=== PATIENT | female | born 1970 | race Caucasian/White ===

== ENCOUNTER → 2016-05-20 | Outpatient (CLI) | payer OTHER ==
[~2016-05-20] MED LIST: OMNIPAQUE 350 MG/ML, 100ML BOTTLE ONE
== END | disposition home or self-care (01) ==
LOC: RAD 11:23
PROVIDERS: ATTEND Physician Assistant
DX: R19.07 Generalized intra-abdominal and pelvic swelling, mass and lump (principal); J98.11 Atelectasis; J84.10 Pulmonary fibrosis, unspecified; K76.9 Liver disease, unspecified; R59.1 Generalized enlarged lymph nodes
CPT/HCPCS: 71260; 74177; Q9967

== ENCOUNTER 2016-05-30 05:24 | Inpatient (IN) | payer OTHER ==
[2016-05-28 15:51] LABS: HEMOGLOBIN 13.1 g/dL (11.7-16.4)
[2016-05-28 15:59] LABS: ASPARTATE AMINO TRANSFERASE 22 U/L (15-37); BLOOD UREA NITROGEN 10 mg/dL (7-18)
[~2016-05-30] VITALS: Ht 172.7 cm; Wt 103.2 kg
[~2016-05-30 05:24] MED LIST changes: +ALPR0.254 PO; +HYDR12.58 PO; +LISI-170 PO; -OMNIPAQUE 350 MG/ML, 100ML BOTTLE ONE; +POTA20TA89 PO; +SERT25TA3 PO; +THYR60TA PO
[2016-05-30 05:56] VITALS: BP 122/85
[2016-05-30] MEDS ORDERED: ALBUMIN HUMAN 5% 1,000 ML ONE (07:02)
[2016-05-30] MEDS ORDERED: FENTANYL PF 250 MCG/5ML ONE (07:08)
[2016-05-30] MEDS ORDERED: MIDAZOLAM 1 MG/ML, 5ML ONE (07:09)
[2016-05-30 07:24] VITALS: BP 112/76
[2016-05-30] MEDS ORDERED: PROPOFOL 10 MG/ML, 20ML ONE (07:50)
[2016-05-30] MEDS ORDERED: CEFOTETAN 2 GM ONE (07:50)
[2016-05-30] MEDS ORDERED: DEXAMETHASONE 4 MG/ML, 1ML ONE (07:50)
[2016-05-30] MEDS ORDERED: ONDANSETRON 2MG/ML, 2ML ONE (07:50)
[2016-05-30] MEDS ORDERED: ROCURONIUM 10 MG/ML ONE (07:50)
[2016-05-30] MEDS ORDERED: POTASSIUM CHLORIDE 40 MEQ in SODIUM CHLORIDE 0.9% 500 ML IV ONE (09:00)
[2016-05-30] MEDS ORDERED: MAGNESIUM SULFATE PMX 2GM/50ML 50 ML IV ONE (09:00)
[2016-05-30] MEDS ORDERED: morphine SULFATE/PF 0.5 MG/ML, 10ML ONE (10:20)
[2016-05-30] MEDS ORDERED: PROMETHAZINE 25 MG/ML, 1ML IV PRN (11:00)
[2016-05-30] MEDS ORDERED: MIDAZOLAM 1 MG/ML, 2ML IV PRN (11:00)
[2016-05-30] MEDS ORDERED: ACETAMINOPHEN 325 MG TABLET PO PRN (11:00)
[2016-05-30] MEDS ORDERED: HYDROmorphone 1 MG/ML, 1ML IV PRN (11:00)
[2016-05-30] MEDS ORDERED: MEPERIDINE/PF 25MG/0.5ML IVPush PRN (11:00)
[2016-05-30] MEDS ORDERED: ONDANSETRON 2MG/ML, 2ML IVPush PRN (11:00)
[2016-05-30] MEDS: KETOROLAC 30 MG/1 ML IV SCH ×2 (12:00→20:13)
[2016-05-30] MEDS: FENTANYL PF 100 MCG/2ML IV PRN ×2 (12:20→12:54)
[2016-05-30] MEDS ORDERED: FENTANYL PF 100 MCG/2ML ONE (12:42)
[2016-05-30] MEDS ORDERED: NALOXONE 0.4 MG/ML, 1ML IV PRN ×2 (13:00)
[2016-05-30] MEDS: HYDROmorphone 5 MG, BUPIVACAINE/PF 0.5%, 30ML 62.5 ML in SODIUM CHLORIDE 0.9% 182.5 ML EPIDCONT SCH (13:00)
[2016-05-30] MEDS ORDERED: MEPERIDINE/PF 25MG/0.5ML IV PRN (13:00)
[2016-05-30] MEDS ORDERED: METOCLOPRAMIDE 5 MG/ML, 2ML IV PRN (13:00)
[2016-05-30 13:03] VITALS: BP_SYST 113; BP_SYST 130; BP_DIAS 60; BP_DIAS 85
[2016-05-30] MEDS: LACTATED RINGERS 1,000 ML IV SCH ×2 (17:27→20:15)
[2016-05-30] MEDS ORDERED: LACTATED RINGERS 1,000 ML IV SCH (17:30)
[2016-05-30] MEDS ORDERED: PHENOL THROAT SPRAY BOTTLE MM PRN (17:30)
[2016-05-30 19:50] VITALS: BP 152/87
[2016-05-31 01:52] VITALS: BP 123/66
[2016-05-31] MEDS: LACTATED RINGERS 1,000 ML IV SCH ×4 (01:52→19:52)
[2016-05-31] MEDS: KETOROLAC 30 MG/1 ML IV SCH ×3 (04:23→21:22)
[2016-05-31 07:05] LABS: BLOOD UREA NITROGEN 4 mg/dL (7-18)
[2016-05-31 07:14] LABS: HEMOGLOBIN 10.4 g/dL (11.7-16.4)
[2016-05-31 07:50] VITALS: BP 106/57
[2016-05-31] MEDS: FAMOTIDINE 20 MG/2 ML IV SCH ×2 (09:21→21:22)
[2016-05-31 12:55] VITALS: BP 108/68
[2016-05-31] MEDS: HYDROmorphone 5 MG, BUPIVACAINE/PF 0.5%, 30ML 62.5 ML in SODIUM CHLORIDE 0.9% 182.5 ML EPIDCONT SCH (13:46)
[2016-05-31 20:45] VITALS: BP 135/80
[2016-05-31] MEDS: LORazepam 2 MG/ML, 1ML IVPush PRN (22:03)
[2016-06-01] MEDS: LORazepam 2 MG/ML, 1ML IVPush PRN (01:31)
[2016-06-01 02:58] VITALS: BP 115/70
[2016-06-01] MEDS: LACTATED RINGERS 1,000 ML IV SCH ×4 (03:27→22:36)
[2016-06-01] MEDS: KETOROLAC 30 MG/1 ML IV SCH ×3 (04:24→20:55)
[2016-06-01 05:54] LABS: HEMOGLOBIN 9.8 g/dL (11.7-16.4)
[2016-06-01 07:10] VITALS: BP 122/80
[2016-06-01] MEDS: FAMOTIDINE 20 MG/2 ML IV SCH ×2 (08:55→20:55)
[2016-06-01 13:05] VITALS: BP 139/88
[2016-06-01] MEDS: HYDROmorphone 5 MG, BUPIVACAINE/PF 0.5%, 30ML 62.5 ML in SODIUM CHLORIDE 0.9% 182.5 ML EPIDCONT SCH (17:56)
[2016-06-01 20:00] VITALS: BP 152/85
[2016-06-02 03:58] VITALS: BP 161/97
[2016-06-02] MEDS: KETOROLAC 30 MG/1 ML IV SCH ×3 (04:08→21:53)
[2016-06-02] MEDS: LACTATED RINGERS 1,000 ML IV SCH ×2 (04:08→05:27)
[2016-06-02] MEDS: LORazepam 2 MG/ML, 1ML IVPush PRN ×2 (04:13→19:37)
[2016-06-02 08:07] VITALS: BP 143/86
[2016-06-02] MEDS: FAMOTIDINE 20 MG/2 ML IV SCH ×2 (09:32→21:53)
[2016-06-02] MEDS: HYDROCHLOROTHIAZIDE 12.5 MG CAPSULE PO SCH (09:32)
[2016-06-02] MEDS: LISINOPRIL 20 MG TABLET PO SCH (09:32)
[2016-06-02 15:34] VITALS: BP 159/94
[2016-06-02] MEDS ORDERED: LACTATED RINGERS 1,000 ML IV SCH (17:30)
[2016-06-02] MEDS: HYDROmorphone 5 MG, BUPIVACAINE/PF 0.5%, 30ML 62.5 ML in SODIUM CHLORIDE 0.9% 182.5 ML EPIDCONT SCH (18:09)
[2016-06-02 20:00] VITALS: BP 162/96
[2016-06-03] MEDS: LORazepam 2 MG/ML, 1ML IVPush PRN ×2 (00:23→21:44)
[2016-06-03 02:00] VITALS: BP 169/101
[2016-06-03 05:13] LABS: BLOOD UREA NITROGEN 2 mg/dL (7-18)
[2016-06-03 05:15] LABS: HEMOGLOBIN 9.8 g/dL (11.7-16.4)
[2016-06-03] MEDS: KETOROLAC 30 MG/1 ML IV SCH ×3 (06:36→21:44)
[2016-06-03 08:23] VITALS: BP 164/97
[2016-06-03] MEDS ORDERED: POTASSIUM CHLORIDE PMX 100 ML IV ONE ×3 (08:30→10:30)
[2016-06-03] MEDS ORDERED: POTASSIUM CHLORIDE 30 MEQ in SODIUM CHLORIDE 0.9% 500 ML IV SCH (10:00)
[2016-06-03] MEDS: D5%-0.45NACL+KCL 20MEQ 1,000 ML IV SCH ×2 (10:41→20:50)
[2016-06-03] MEDS: HYDROCHLOROTHIAZIDE 12.5 MG CAPSULE PO SCH (10:47)
[2016-06-03] MEDS: LISINOPRIL 20 MG TABLET PO SCH (10:47)
[2016-06-03] MEDS: FAMOTIDINE 20 MG/2 ML IV SCH ×2 (10:48→20:50)
[2016-06-03 12:00] VITALS: BP 169/109
[2016-06-03 20:00] VITALS: BP 149/87
[2016-06-04] MEDS: D5%-0.45NACL+KCL 20MEQ 1,000 ML IV SCH ×3 (04:21→22:16)
[2016-06-04 04:45] VITALS: BP 170/93
[2016-06-04 05:11] VITALS: BP 165/98
[2016-06-04] MEDS: KETOROLAC 30 MG/1 ML IV SCH (05:21)
[2016-06-04 07:45] VITALS: BP 158/97
[2016-06-04] MEDS: FAMOTIDINE 20 MG/2 ML IV SCH ×2 (09:27→20:41)
[2016-06-04 09:35] LABS: BLOOD UREA NITROGEN 2 mg/dL (7-18)
[2016-06-04] MEDS: LISINOPRIL 20 MG TABLET PO SCH (09:59)
[2016-06-04] MEDS: HYDROCHLOROTHIAZIDE 12.5 MG CAPSULE PO SCH (11:24)
[2016-06-04] MEDS ORDERED: POTASSIUM CHLORIDE IV SCH (12:00)
[2016-06-04] MEDS ORDERED: SODIUM CHLORIDE 0.9% IV SCH (12:00)
[2016-06-04 13:32] VITALS: BP 164/104
[2016-06-04 18:33] VITALS: BP 163/93
[2016-06-04] MEDS: LORazepam 2 MG/ML, 1ML IVPush PRN (20:41)
[2016-06-05 03:30] VITALS: BP 154/100
[2016-06-05 06:20] LABS: BLOOD UREA NITROGEN 3 mg/dL (7-18)
[2016-06-05] MEDS: D5%-0.45NACL+KCL 20MEQ 1,000 ML IV SCH ×3 (06:24→20:48)
[2016-06-05] MEDS: HYDROCHLOROTHIAZIDE 12.5 MG CAPSULE PO SCH ×2 (09:00→10:15)
[2016-06-05] MEDS: LISINOPRIL 20 MG TABLET PO SCH ×2 (09:00→10:14)
[2016-06-05 09:08] VITALS: BP 145/89
[2016-06-05] MEDS ORDERED: POTASSIUM CHLORIDE 40 MEQ in SODIUM CHLORIDE 0.9% 500 ML IV ONE (10:00)
[2016-06-05] MEDS: FAMOTIDINE 20 MG/2 ML IV SCH ×2 (10:14→20:48)
[2016-06-05 14:00] VITALS: BP 123/84
[2016-06-05 17:46] VITALS: BP 133/84
[2016-06-05 19:10] VITALS: BP 127/87
[2016-06-05] MEDS: HYDROmorphone 5 MG, BUPIVACAINE/PF 0.5%, 30ML 62.5 ML in SODIUM CHLORIDE 0.9% 182.5 ML EPIDCONT SCH (20:40)
[2016-06-05] MEDS: LORazepam 2 MG/ML, 1ML IVPush PRN (20:48)
[2016-06-06 02:20] VITALS: BP 138/84
[2016-06-06 04:38] LABS: HEMOGLOBIN 9.8 g/dL (11.7-16.4)
[2016-06-06 04:42] LABS: BLOOD UREA NITROGEN 4 mg/dL (7-18)
[2016-06-06] MEDS: D5%-0.45NACL+KCL 20MEQ 1,000 ML IV SCH ×2 (06:10→19:05)
[2016-06-06 07:53] VITALS: BP 120/77
[2016-06-06] MEDS: LISINOPRIL 20 MG TABLET PO SCH (09:33)
[2016-06-06] MEDS: FAMOTIDINE 20 MG/2 ML IV SCH ×2 (09:33→20:38)
[2016-06-06] MEDS: HYDROCHLOROTHIAZIDE 12.5 MG CAPSULE PO SCH (09:33)
[2016-06-06 13:40] VITALS: BP 115/77
[2016-06-06] MEDS: OXYcodone/APAP 7.5/325MG TABLET PO PRN ×3 (14:44→22:50)
[2016-06-06 19:58] VITALS: BP 111/77
[2016-06-06] MEDS: LORazepam 2 MG/ML, 1ML IVPush PRN (22:50)
[2016-06-07 01:17] VITALS: BP 115/73
[2016-06-07] MEDS: D5%-0.45NACL+KCL 20MEQ 1,000 ML IV SCH (05:27)
[2016-06-07] MEDS: OXYcodone/APAP 7.5/325MG TABLET PO PRN ×4 (05:28→16:39)
[2016-06-07 07:57] VITALS: BP 123/76
[2016-06-07] MEDS: HYDROCHLOROTHIAZIDE 12.5 MG CAPSULE PO SCH (11:07)
[2016-06-07] MEDS: FAMOTIDINE 20 MG/2 ML IV SCH (11:07)
[2016-06-07] MEDS: LISINOPRIL 20 MG TABLET PO SCH (11:07)
[2016-06-07 13:57] VITALS: BP 114/79
[2016-06-07] MEDS ORDERED: OXYC1TAB8 PO (16:33)
[2016-06-07] MEDS ORDERED: METO10TA82 PO (16:34)
== END 2016-06-07 17:30 | disposition home or self-care (01) | DRG 331 ==
LOC: 4NOR 05:24 → 3NW 10:03
PROVIDERS: ADMIT Specialist; ATTEND Specialist
PROC: 0DTF0ZZ Resection of Right Large Intestine, Open Approach (ICD-10-PCS; 2016-05-30)
PROC: 0UT70ZZ Resection of Bilateral Fallopian Tubes, Open Approach (ICD-10-PCS; 2016-05-30)
PROC: 0UT90ZZ Resection of Uterus, Open Approach (ICD-10-PCS; 2016-05-30)
PROC: 0UTC0ZZ Resection of Cervix, Open Approach (ICD-10-PCS; 2016-05-30)
PROC: 0DTS0ZZ (ICD-10-PCS; 2016-05-30)
PROC: 0TN70ZZ Release Left Ureter, Open Approach (ICD-10-PCS; 2016-05-30)
PROC: 0TN60ZZ Release Right Ureter, Open Approach (ICD-10-PCS; 2016-05-30)
PROC: 0DBW0ZZ Excision of Peritoneum, Open Approach (ICD-10-PCS; 2016-05-30)
PROC: 0UT20ZZ Resection of Bilateral Ovaries, Open Approach (ICD-10-PCS; principal; 2016-05-30 07:30)
DX: C18.1 Malignant neoplasm of appendix (principal); D72.829 Elevated white blood cell count, unspecified; D64.9 Anemia, unspecified; E87.6 Hypokalemia; I10 Essential (primary) hypertension
CPT/HCPCS: 36415; 71020; 74000; 80048; 80053; 82040; 83735; 84703; 85025; 85610; 85730; 86850; 86900; 86923; 88112; 88304; 88305; 88307; 88331; 88341; 88342; 93005; C1729; J1100; J1170; J1885; J2250; J2274; J2405; J2704; J3010; J3480; J3490; P9045; C1765; G0461; J2060; J2765; J7030; J7040; J7050; J7120; S0028; S0074

== ENCOUNTER → 2016-07-23 | Outpatient (CLI) | payer OTHER ==
[~2016-07-23] MED LIST changes: +METO10TA82 PO; +OXYC1TAB8 PO
== END | disposition home or self-care (01) ==
LOC: CFH 07:57
PROVIDERS: ATTEND Specialist
DX: Z02.9 Encounter for administrative examinations, unspecified (principal)

== ENCOUNTER → 2016-07-25 | Outpatient (CLI) | payer OTHER ==
[~2016-07-25] MED LIST changes: +ALPRazolam 1MG TABLET ONE; +GADOBUTROL 10 MMOL/10 ML VIAL ONE; +GADOBUTROL 7.5 MMOL/7.5 ML PFS ONE
== END | disposition home or self-care (01) ==
LOC: RAD 10:04
PROVIDERS: ATTEND Specialist
DX: C77.2 Secondary and unspecified malignant neoplasm of intra-abdominal lymph nodes (principal); C79.82 Secondary malignant neoplasm of genital organs; C79.60 Secondary malignant neoplasm of unspecified ovary; C18.1 Malignant neoplasm of appendix; K76.0 Fatty (change of) liver, not elsewhere classified; R59.9 Enlarged lymph nodes, unspecified; Z90.49 Acquired absence of other specified parts of digestive tract; Z90.710 Acquired absence of both cervix and uterus; Z90.722 Acquired absence of ovaries, bilateral
CPT/HCPCS: 72197; A9585; 74183

== ENCOUNTER 2016-08-10 08:10 | Day surgery (SDC) | payer OTHER ==
[~2016-08-10] VITALS: Ht 172.7 cm; Wt 90.0 kg
[~2016-08-10 08:10] MED LIST changes: -ALPRazolam 1MG TABLET ONE; +BUPIVACAINE/PF-EPI 0.25% 1:200K ONE; -GADOBUTROL 10 MMOL/10 ML VIAL ONE; -GADOBUTROL 7.5 MMOL/7.5 ML PFS ONE
[2016-08-10 08:40] VITALS: BP 141/96
[2016-08-10] MEDS ORDERED: LACTATED RINGERS 1,000 ML IV SCH (08:44)
[2016-08-10] MEDS ORDERED: HEPARIN 1,000 UNITS/ML, 10ML ONE (09:16)
[2016-08-10] MEDS ORDERED: BUPIVACAINE/PF-EPI 0.5% 1:200K ONE (09:16)
[2016-08-10] MEDS ORDERED: BUPIVACAINE/PF-EPI 0.5% 1:200K INFIL ONE (09:30)
[2016-08-10] MEDS ORDERED: HEPARIN 1,000 UNITS/ML, 10ML IV ONE (09:30)
[2016-08-10] MEDS ORDERED: FENTANYL PF 100 MCG/2ML ONE ×2 (09:35→11:25)
[2016-08-10] MEDS ORDERED: FENTANYL PF 250 MCG/5ML ONE (09:45)
[2016-08-10] MEDS ORDERED: MIDAZOLAM 1 MG/ML, 2ML ONE (09:45)
[2016-08-10] MEDS ORDERED: HYDROmorphone 1 MG/ML, 1ML IV PRN (10:00)
[2016-08-10] MEDS ORDERED: MIDAZOLAM 1 MG/ML, 2ML IV PRN (10:00)
[2016-08-10] MEDS ORDERED: MEPERIDINE/PF 25MG/0.5ML IVPush PRN (10:00)
[2016-08-10] MEDS ORDERED: hydrALAzine 20 MG/ML, 1ML IV PRN (10:00)
[2016-08-10] MEDS ORDERED: FENTANYL PF 100 MCG/2ML IV PRN (10:00)
[2016-08-10] MEDS ORDERED: PROMETHAZINE 25 MG/ML, 1ML IV PRN (10:00)
[2016-08-10] MEDS ORDERED: ONDANSETRON 2MG/ML, 2ML IVPush PRN (10:00)
[2016-08-10] MEDS ORDERED: LABETALOL 5MG/ML, 20ML IV PRN (10:00)
[2016-08-10] MEDS ORDERED: OXYcodone 5 MG/5 ML ORAL.SOL UDC PO PRN (10:00)
[2016-08-10] MEDS ORDERED: OMNIPAQUE 350 MG/ML, 50 ML BOTTLE IV ONE (10:15)
[2016-08-10] MEDS ORDERED: DEXAMETHASONE 4 MG/ML, 1ML ONE (10:32)
[2016-08-10] MEDS ORDERED: METOCLOPRAMIDE 5 MG/ML, 2ML ONE (10:32)
[2016-08-10] MEDS ORDERED: ONDANSETRON 2MG/ML, 2ML ONE (10:32)
[2016-08-10] MEDS ORDERED: PROPOFOL 10 MG/ML, 20ML ONE (10:32)
[2016-08-10] MEDS ORDERED: CEFAZOLIN 1,000 MG ONE (10:32)
[2016-08-10] MEDS ORDERED: OMNIPAQUE 350 MG/ML, 50 ML BOTTLE ONE (11:14)
[2016-08-10] MEDS ORDERED: OXYcodone 5 MG/5 ML ORAL.SOL UDC ONE (11:25)
== END 2016-08-10 13:26 | disposition home or self-care (01) ==
LOC: OUT 08:10
PROVIDERS: ATTEND Specialist
DX: Z51.11 Encounter for antineoplastic chemotherapy (principal); C56.9 Malignant neoplasm of unspecified ovary; E03.9 Hypothyroidism, unspecified; E66.01 Morbid (severe) obesity due to excess calories; I10 Essential (primary) hypertension; E89.0 Postprocedural hypothyroidism; Z98.890 Other specified postprocedural states; Z83.3 Family history of diabetes mellitus; Z80.49 Family history of malignant neoplasm of other genital organs; Z82.49 Family history of ischemic heart disease and other diseases of the circulatory system; Z82.3 Family history of stroke
CPT/HCPCS: 36561; 71010; 77001; C1788; J0690; J1100; J1644; J2250; J2405; J2704; J2765; J3010; J7120; Q9967

== ENCOUNTER → 2016-10-09 | Outpatient (CLI) | payer OTHER ==
[~2016-10-09] MED LIST changes: -BUPIVACAINE/PF-EPI 0.25% 1:200K ONE; +GADOBUTROL 10 MMOL/10 ML VIAL ONE
== END | disposition home or self-care (01) ==
LOC: RAD 15:23
PROVIDERS: ATTEND Specialist
DX: R16.2 Hepatomegaly with splenomegaly, not elsewhere classified (principal); R59.9 Enlarged lymph nodes, unspecified; C18.1 Malignant neoplasm of appendix; D46.9 Myelodysplastic syndrome, unspecified; C79.61 Secondary malignant neoplasm of right ovary; C79.62 Secondary malignant neoplasm of left ovary; C77.9 Secondary and unspecified malignant neoplasm of lymph node, unspecified; Z90.710 Acquired absence of both cervix and uterus
CPT/HCPCS: 71020; 72197; 74183; A9585

== ENCOUNTER → 2017-01-08 | Outpatient (CLI) | payer OTHER ==
[~2017-01-08] MED LIST changes: -GADOBUTROL 10 MMOL/10 ML VIAL ONE
== END | disposition home or self-care (01) ==
LOC: RAD 15:28
PROVIDERS: ATTEND Specialist
DX: K76.0 Fatty (change of) liver, not elsewhere classified (principal); C18.1 Malignant neoplasm of appendix
CPT/HCPCS: 76705

== ENCOUNTER 2017-01-12 23:44 | Emergency (ER) | payer OTHER ==
[~2017-01-12] VITALS: Ht 172.7 cm; Wt 93.6 kg
[2017-01-13] MEDS ORDERED: SODIUM CHLORIDE FLUSH 10ML SYR IVF ONE (01:00)
[2017-01-13 01:07] LABS: HEMATOCRIT 40.8 % (34.6-47.8); HEMOGLOBIN 13.8 g/dL (11.7-16.4); WHITE BLOOD COUNT 7.1 x10^3/uL (3.4-10)
[2017-01-13 01:20] LABS: ASPARTATE AMINO TRANSFERASE 283 U/L (15-37); BLOOD UREA NITROGEN 13 mg/dL (7-18)
[2017-01-13] MEDS ORDERED: OMNIPAQUE 350 MG/ML, 100ML BOTTLE ONE (02:20)
[2017-01-13 05:17] VITALS: BP 191/105
[2017-01-13] MEDS ORDERED: ONDA4TAB10 PO (05:24)
[2017-01-13] MEDS ORDERED: AMLO10TA2 PO (05:25)
== END 2017-01-13 05:55 | disposition home or self-care (01) ==
LOC: ED 23:59
DX: C18.9 Malignant neoplasm of colon, unspecified (principal); R79.89 Other specified abnormal findings of blood chemistry
CPT/HCPCS: 36415; 74177; 76700; 80053; 81003; 83690; 85025; 99285; Q9967

== ENCOUNTER 2017-03-13 14:00 | Inpatient (IN) | payer OTHER ==
[~2017-03-13] VITALS: Ht 172.7 cm; Wt 89.1 kg
[~2017-03-13 14:00] MED LIST changes: +AMLO10TA2 PO; +ONDA4TAB10 PO
[2017-03-13] MEDS ORDERED: SODIUM CHLORIDE 0.9% 1,000 ML IV ONE (14:28)
[2017-03-13] MEDS ORDERED: SODIUM CHLORIDE FLUSH 10ML SYR IVF ONE (14:30)
[2017-03-13] MEDS ORDERED: ONDANSETRON 2MG/ML, 2ML IVPush ONE (14:30)
[2017-03-13] MEDS ORDERED: SODIUM CHLORIDE 0.9% 1,000ML IVBOLUS ONE (14:30)
[2017-03-13 14:57] LABS: BASOPHILS % (AUTO) 0 % (0-1); EOSINOPHILS % (AUTO) 0 % (1-7); LYMPHOCYTES # (AUTO) 0.69 x10^3/uL (1-3.4); LYMPHOCYTES % (AUTO) 7 % (22-44); MD NO; MEAN CORPUSCULAR HEMOGLOBIN 30.3 pg (27.0-34.8); MEAN CORPUSCULAR HGB CONC 33.7 g/dL (32.4-35.8); MEAN CORPUSCULAR VOLUME 89.8 fL (80-100); MEAN PLATELET VOLUME 7.1 fL (7.4-10.4); MONOCYTES # (AUTO) 0.18 x10^3/uL (0.2-0.8); MONOCYTES % (AUTO) 2 % (2-9); NEUTROPHILS # (AUTO) 9.12 x10^3/uL (1.8-6.8); NEUTROPHILS % (AUTO) 91 % (42-75); PLATELET COUNT 268 x10^3/uL (130-400); RED BLOOD COUNT 4.92 x10^6/uL (3.82-5.3); RED CELL DISTRIBUTION WIDTH 14.2 % (9.6-15.2)
[2017-03-13 15:06] LABS: ALANINE AMINOTRANSFERASE 93 U/L (12-78); ALBUMIN 3.4 g/dL (3.4-5.0); ANION GAP 9 mmol/L (5-15); CALCIUM 9.4 mg/dL (8.5-10.1); CHLORIDE 105 mmol/L (98-107); CREATININE 0.55 mg/dL (0.55-1.02)
[2017-03-13 15:08] LABS: ALKALINE PHOSPHATASE 368 U/L (45-117); BILIRUBIN,TOTAL 1.5 mg/dL (0.2-1.0); TOTAL PROTEIN 8.8 g/dL (6.4-8.2)
[2017-03-13] MEDS ORDERED: HYDROmorphone 2 MG/ML, 1ML ONE ×3 (15:17→19:40)
[2017-03-13] MEDS ORDERED: ONDANSETRON 2MG/ML, 2ML ONE (15:17)
[2017-03-13] MEDS: HYDROmorphone 1 MG/ML, 1ML IVPush PRN ×2 (15:25→16:44)
[2017-03-13] MEDS ORDERED: OMNIPAQUE 350 MG/ML, 100ML BOTTLE ONE (17:29)
[2017-03-13 20:21] VITALS: BP 130/91
[2017-03-13 20:25] LABS: MICROSCOPIC AUTO
[2017-03-13 20:28] LABS: CULTURE INDICATED? NO
[2017-03-13] MEDS ORDERED: HYDROmorphone 1 MG/ML, 1ML IV ONE (20:30)
[2017-03-13] MEDS ORDERED: ENALAPRILAT 1.25 MG/ML, 2ML IVPush PRN (22:00)
[2017-03-13] MEDS ORDERED: LORazepam 2 MG/ML, 1ML IVPush PRN (22:00)
[2017-03-13] MEDS ORDERED: PROMETHAZINE 25 MG/ML, 1ML IM PRN (22:00)
[2017-03-13] MEDS: SODIUM CHLORIDE 0.9% 1,000 ML IV SCH (22:04)
[2017-03-13] MEDS: morphine SULFATE 10 MG/ML, 1ML IVPush PRN ×2 (23:00→23:48)
[2017-03-14 02:18] VITALS: BP 115/81
[2017-03-14] MEDS: morphine SULFATE 10 MG/ML, 1ML IVPush PRN ×2 (02:24→06:13)
[2017-03-14] MEDS: ONDANSETRON 2MG/ML, 2ML IVPush PRN ×3 (02:31→17:22)
[2017-03-14 04:39] LABS: BASOPHILS # (AUTO) 0.03 x10^3/uL (0-0.1); BASOPHILS % (AUTO) 0 % (0-1); EOSINOPHILS # (AUTO) 0.01 x10^3/uL (0-0.4); EOSINOPHILS % (AUTO) 0 % (1-7); LYMPHOCYTES # (AUTO) 1.12 x10^3/uL (1-3.4); LYMPHOCYTES % (AUTO) 6 % (22-44); MD NO; MEAN CORPUSCULAR HEMOGLOBIN 30.8 pg (27.0-34.8); MEAN CORPUSCULAR HGB CONC 34.1 g/dL (32.4-35.8); MEAN CORPUSCULAR VOLUME 90.4 fL (80-100); MEAN PLATELET VOLUME 6.9 fL (7.4-10.4); MONOCYTES % (AUTO) 5 % (2-9); NEUTROPHILS # (AUTO) 15.81 x10^3/uL (1.8-6.8); NEUTROPHILS % (AUTO) 89 % (42-75); PLATELET COUNT 455 x10^3/uL (130-400); RED BLOOD COUNT 4.87 x10^6/uL (3.82-5.3); RED CELL DISTRIBUTION WIDTH 14.1 % (9.6-15.2)
[2017-03-14 04:47] LABS: ALANINE AMINOTRANSFERASE 103 U/L (12-78); ALBUMIN 2.8 g/dL (3.4-5.0); ANION GAP 7 mmol/L (5-15); CALCIUM 8.7 mg/dL (8.5-10.1); CHLORIDE 109 mmol/L (98-107); CREATININE 0.57 mg/dL (0.55-1.02)
[2017-03-14 04:50] LABS: ALKALINE PHOSPHATASE 326 U/L (45-117); BILIRUBIN,TOTAL 1.3 mg/dL (0.2-1.0); TOTAL PROTEIN 7.6 g/dL (6.4-8.2)
[2017-03-14] MEDS: SODIUM CHLORIDE 0.9% 1,000 ML IV SCH ×3 (06:21→22:42)
[2017-03-14 06:26] VITALS: BP 131/87
[2017-03-14] MEDS ORDERED: HYDROmorphone 2 MG/ML, 1ML ONE ×6 (10:19→21:46)
[2017-03-14] MEDS: HYDROmorphone 1 MG/ML, 1ML IV PRN ×6 (10:22→21:54)
[2017-03-14] MEDS ORDERED: CEFTRIAXONE PMX 1GM/50ML 50 ML IV SCH (11:30)
[2017-03-14 12:53] VITALS: BP 130/87
[2017-03-14 20:21] VITALS: BP 125/89
[2017-03-15] MEDS ORDERED: HYDROmorphone 2 MG/ML, 1ML ONE ×9 (00:11→23:56)
[2017-03-15] MEDS: HYDROmorphone 1 MG/ML, 1ML IV PRN ×8 (00:17→23:58)
[2017-03-15 01:25] VITALS: BP 109/74
[2017-03-15 05:02] LABS: MEAN CORPUSCULAR HEMOGLOBIN 30.8 pg (27.0-34.8); MEAN CORPUSCULAR HGB CONC 33.8 g/dL (32.4-35.8); MEAN CORPUSCULAR VOLUME 91.1 fL (80-100); MEAN PLATELET VOLUME 6.9 fL (7.4-10.4); PLATELET COUNT 433 x10^3/uL (130-400); RED BLOOD COUNT 4.29 x10^6/uL (3.82-5.3); RED CELL DISTRIBUTION WIDTH 14.3 % (9.6-15.2)
[2017-03-15 05:49] LABS: MD YES
[2017-03-15 05:50] LABS: BAND#(MANUAL) 2.12 x10^3/uL; BANDS%(MANUAL) 8 % (0-7); LYMPH#(MANUAL) 1.33 x10^3/uL (1-3.4); LYMPHS% (MANUAL) 5 % (22-44); MONOS#(MANUAL) 2.39 x10^3/uL (0.3-2.7); MONOS% (MANUAL) 9 % (2-9); SEG#(MANUAL) 20.67 x10^3/uL (1.8-6.8); SEGS% (MANUAL) 78 % (42-75)
[2017-03-15 05:51] LABS: <PLATELET ESTIMATE> ADEQUATE; <PLT MORPHOLOGY> NORMAL PLT MORPH; <RBC MORPHOLOGY> NORMAL
[2017-03-15] MEDS: SODIUM CHLORIDE 0.9% 1,000 ML IV SCH ×2 (06:20→19:58)
[2017-03-15 06:42] VITALS: BP 121/85
[2017-03-15 07:26] VITALS: BP 114/84
[2017-03-15] MEDS ORDERED: BUPIVACAINE/PF 0.5% ONE (07:54)
[2017-03-15] MEDS ORDERED: EPINEPHRINE 1 MG/ML, 1ML ONE (07:54)
[2017-03-15] MEDS ORDERED: ALBUMIN HUMAN 5% 500 ML ONE (08:20)
[2017-03-15] MEDS ORDERED: FENTANYL PF 250 MCG/5ML ONE (08:29)
[2017-03-15] MEDS ORDERED: MIDAZOLAM 1 MG/ML, 2ML ONE (08:30)
[2017-03-15] MEDS ORDERED: PROPOFOL 10 MG/ML, 20ML ONE (08:48)
[2017-03-15] MEDS ORDERED: KETAMINE 10 MG/ML, 20ML ONE (08:50)
[2017-03-15] MEDS ORDERED: ROCURONIUM 10 MG/ML,10ML ONE (09:22)
[2017-03-15] MEDS ORDERED: SUCCINYLCHOLINE 20 MG/ML, 10ML ONE (09:22)
[2017-03-15] MEDS ORDERED: ONDANSETRON 2MG/ML, 2ML ONE (09:22)
[2017-03-15] MEDS ORDERED: EPHEDRINE 50 MG/ML, 1ML IVPush PRN (10:00)
[2017-03-15] MEDS ORDERED: ONDANSETRON 2MG/ML, 2ML IVPush PRN (10:00)
[2017-03-15] MEDS ORDERED: PROMETHAZINE 25 MG/ML, 1ML IV PRN (10:00)
[2017-03-15] MEDS ORDERED: LORazepam 2 MG/ML, 1ML IVPush PRN (10:00)
[2017-03-15] MEDS ORDERED: HYDROmorphone 1 MG/ML, 1ML IV PRN (10:00)
[2017-03-15] MEDS ORDERED: FENTANYL PF 100 MCG/2ML IV PRN (10:00)
[2017-03-15] MEDS ORDERED: MIDAZOLAM 1 MG/ML, 2ML IV PRN (10:00)
[2017-03-15] MEDS ORDERED: SODIUM CHLORIDE 0.9%, 500ML IVBOLUS PRN (11:00)
[2017-03-15] MEDS ORDERED: FENTANYL PF 100 MCG/2ML ONE (11:00)
[2017-03-15] MEDS: PIPERACILLIN/TAZO/PMX 4.5GM 100 ML IV SCH ×2 (13:09→20:49)
[2017-03-15 13:46] VITALS: BP 100/58
[2017-03-15] MEDS: ONDANSETRON 2MG/ML, 2ML IVPush PRN ×2 (14:35→20:47)
[2017-03-15] MEDS ORDERED: PHENOL THROAT SPRAY BOTTLE MM PRN (17:30)
[2017-03-15 20:17] VITALS: BP 102/72
[2017-03-16] MEDS ORDERED: HYDROmorphone 2 MG/ML, 1ML ONE ×4 (02:19→08:40)
[2017-03-16] MEDS: HYDROmorphone 1 MG/ML, 1ML IV PRN ×3 (02:21→06:36)
[2017-03-16 02:33] VITALS: BP 105/71
[2017-03-16] MEDS: PIPERACILLIN/TAZO/PMX 4.5GM 100 ML IV SCH ×3 (04:36→19:43)
[2017-03-16] MEDS: SODIUM CHLORIDE 0.9% 1,000 ML IV SCH ×3 (04:36→21:46)
[2017-03-16 07:05] VITALS: BP 106/75
[2017-03-16 08:25] LABS: ALBUMIN 2.1 g/dL (3.4-5.0); ANION GAP 4 mmol/L (5-15); CALCIUM 7.8 mg/dL (8.5-10.1); CHLORIDE 110 mmol/L (98-107)
[2017-03-16 08:29] LABS: ALANINE AMINOTRANSFERASE 37 U/L (12-78); ALKALINE PHOSPHATASE 133 U/L (45-117); BILIRUBIN,TOTAL 1.1 mg/dL (0.2-1.0); CREATININE 0.47 mg/dL (0.55-1.02); TOTAL PROTEIN 5.8 g/dL (6.4-8.2)
[2017-03-16 08:37] LABS: MEAN CORPUSCULAR HEMOGLOBIN 30.8 pg (27.0-34.8); MEAN CORPUSCULAR VOLUME 90.6 fL (80-100); MEAN PLATELET VOLUME 6.8 fL (7.4-10.4); PLATELET COUNT 224 x10^3/uL (130-400); RED BLOOD COUNT 3.28 x10^6/uL (3.82-5.3); RED CELL DISTRIBUTION WIDTH 14.5 % (9.6-15.2)
[2017-03-16 08:40] LABS: MD YES
[2017-03-16 08:41] LABS: <PLATELET ESTIMATE> ADEQUATE; <PLT MORPHOLOGY> NORMAL PLT MORPH; <RBC MORPHOLOGY> NORMAL; BAND#(MANUAL) 1.29 x10^3/uL; BANDS%(MANUAL) 7 % (0-7); LYMPH#(MANUAL) 0.37 x10^3/uL (1-3.4); LYMPHS% (MANUAL) 2 % (22-44); MONOS% (MANUAL) 6 % (2-9); SEG#(MANUAL) 15.64 x10^3/uL (1.8-6.8); SEGS% (MANUAL) 85 % (42-75)
[2017-03-16] MEDS: HYDROmorphone 2 MG/ML, 1ML IV PRN ×7 (08:55→23:56)
[2017-03-16 12:58] VITALS: BP 124/71
[2017-03-16] MEDS: POTASSIUM CHLORIDE 20 MEQ TAB.ER.PRT PO SCH (18:36)
[2017-03-16 20:15] VITALS: BP 107/72
[2017-03-17 01:56] VITALS: BP 106/74
[2017-03-17] MEDS: PIPERACILLIN/TAZO/PMX 4.5GM 100 ML IV SCH ×3 (03:07→19:39)
[2017-03-17] MEDS: HYDROmorphone 2 MG/ML, 1ML IV PRN ×7 (03:07→20:30)
[2017-03-17 04:57] LABS: BASOPHILS # (AUTO) 0.04 x10^3/uL (0-0.1); BASOPHILS % (AUTO) 0 % (0-1); EOSINOPHILS # (AUTO) 0.09 x10^3/uL (0-0.4); EOSINOPHILS % (AUTO) 1 % (1-7); LYMPHOCYTES # (AUTO) 1.37 x10^3/uL (1-3.4); LYMPHOCYTES % (AUTO) 11 % (22-44); MD NO; MEAN CORPUSCULAR HEMOGLOBIN 30.9 pg (27.0-34.8); MEAN CORPUSCULAR HGB CONC 34.1 g/dL (32.4-35.8); MEAN CORPUSCULAR VOLUME 90.8 fL (80-100); MEAN PLATELET VOLUME 6.5 fL (7.4-10.4); MONOCYTES # (AUTO) 0.53 x10^3/uL (0.2-0.8); MONOCYTES % (AUTO) 4 % (2-9); NEUTROPHILS # (AUTO) 10.94 x10^3/uL (1.8-6.8); NEUTROPHILS % (AUTO) 84 % (42-75); PLATELET COUNT 212 x10^3/uL (130-400); RED BLOOD COUNT 2.81 x10^6/uL (3.82-5.3); RED CELL DISTRIBUTION WIDTH 14.3 % (9.6-15.2)
[2017-03-17 05:04] LABS: ANION GAP 5 mmol/L (5-15); CALCIUM 7.4 mg/dL (8.5-10.1); CHLORIDE 107 mmol/L (98-107); CREATININE 0.44 mg/dL (0.55-1.02)
[2017-03-17] MEDS: SODIUM CHLORIDE 0.9% 1,000 ML IV SCH ×2 (05:32→14:46)
[2017-03-17 07:01] VITALS: BP 117/79
[2017-03-17] MEDS: POTASSIUM CHLORIDE 20 MEQ TAB.ER.PRT PO SCH ×2 (07:26→18:07)
[2017-03-17 13:39] VITALS: BP 125/73
[2017-03-17 14:38] VITALS: BP 111/68
[2017-03-17 18:37] VITALS: BP 140/88
[2017-03-17 18:46] LABS: CLOSTRIDIUM DIFFICILE ANTIGEN NEGATIVE; CLOSTRIDIUM DIFFICILE TOXIN NEGATIVE (Negative)
[2017-03-17] MEDS: DOCUSATE 100 MG CAPSULE PO SCH (20:30)
[2017-03-18 00:13] VITALS: BP 129/83
[2017-03-18] MEDS: HYDROmorphone 2 MG/ML, 1ML IV PRN ×7 (01:11→21:04)
[2017-03-18] MEDS: PIPERACILLIN/TAZO/PMX 4.5GM 100 ML IV SCH ×3 (03:57→20:24)
[2017-03-18 04:57] LABS: BASOPHILS # (AUTO) 0.03 x10^3/uL (0-0.1); BASOPHILS % (AUTO) 0 % (0-1); EOSINOPHILS # (AUTO) 0.09 x10^3/uL (0-0.4); EOSINOPHILS % (AUTO) 1 % (1-7); LYMPHOCYTES # (AUTO) 1.07 x10^3/uL (1-3.4); LYMPHOCYTES % (AUTO) 14 % (22-44); MD NO; MEAN CORPUSCULAR HEMOGLOBIN 31.1 pg (27.0-34.8); MEAN CORPUSCULAR HGB CONC 34.4 g/dL (32.4-35.8); MEAN CORPUSCULAR VOLUME 90.4 fL (80-100); MEAN PLATELET VOLUME 6.6 fL (7.4-10.4); MONOCYTES # (AUTO) 0.39 x10^3/uL (0.2-0.8); MONOCYTES % (AUTO) 5 % (2-9); NEUTROPHILS # (AUTO) 6.12 x10^3/uL (1.8-6.8); NEUTROPHILS % (AUTO) 80 % (42-75); PLATELET COUNT 237 x10^3/uL (130-400); RED BLOOD COUNT 2.98 x10^6/uL (3.82-5.3); RED CELL DISTRIBUTION WIDTH 14.2 % (9.6-15.2)
[2017-03-18 05:02] LABS: ALBUMIN 1.9 g/dL (3.4-5.0); ANION GAP 10 mmol/L (5-15); CALCIUM 7.6 mg/dL (8.5-10.1); CHLORIDE 106 mmol/L (98-107)
[2017-03-18 05:06] LABS: ALANINE AMINOTRANSFERASE 109 U/L (12-78); ALKALINE PHOSPHATASE 613 U/L (45-117); BILIRUBIN,TOTAL 3.3 mg/dL (0.2-1.0); CREATININE 0.36 mg/dL (0.55-1.02); TOTAL PROTEIN 5.9 g/dL (6.4-8.2)
[2017-03-18 06:52] VITALS: BP 126/83
[2017-03-18] MEDS: POTASSIUM CHLORIDE 20 MEQ TAB.ER.PRT PO SCH ×4 (08:00→16:59)
[2017-03-18] MEDS: DOCUSATE 100 MG CAPSULE PO SCH ×2 (08:05→20:24)
[2017-03-18 14:27] VITALS: BP 125/82
[2017-03-18 18:49] VITALS: BP 137/91
[2017-03-19] MEDS: HYDROmorphone 2 MG/ML, 1ML IV PRN ×9 (00:09→23:03)
[2017-03-19 00:37] VITALS: BP 146/91
[2017-03-19] MEDS: PIPERACILLIN/TAZO/PMX 4.5GM 100 ML IV SCH ×3 (04:14→19:57)
[2017-03-19 05:17] LABS: ALANINE AMINOTRANSFERASE 154 U/L (12-78); ALBUMIN 1.9 g/dL (3.4-5.0); ANION GAP 9 mmol/L (5-15); CALCIUM 7.5 mg/dL (8.5-10.1); CHLORIDE 109 mmol/L (98-107); CREATININE 0.44 mg/dL (0.55-1.02)
[2017-03-19 05:19] LABS: ALKALINE PHOSPHATASE 779 U/L (45-117); BILIRUBIN,TOTAL 4.1 mg/dL (0.2-1.0); TOTAL PROTEIN 6.1 g/dL (6.4-8.2)
[2017-03-19 05:26] LABS: BASOPHILS # (AUTO) 0.02 x10^3/uL (0-0.1); BASOPHILS % (AUTO) 0 % (0-1); EOSINOPHILS # (AUTO) 0.12 x10^3/uL (0-0.4); EOSINOPHILS % (AUTO) 2 % (1-7); LYMPHOCYTES # (AUTO) 1.15 x10^3/uL (1-3.4); LYMPHOCYTES % (AUTO) 18 % (22-44); MD NO; MEAN CORPUSCULAR HEMOGLOBIN 30.5 pg (27.0-34.8); MEAN CORPUSCULAR VOLUME 89.8 fL (80-100); MEAN PLATELET VOLUME 6.4 fL (7.4-10.4); MONOCYTES # (AUTO) 0.46 x10^3/uL (0.2-0.8); MONOCYTES % (AUTO) 7 % (2-9); NEUTROPHILS # (AUTO) 4.83 x10^3/uL (1.8-6.8); NEUTROPHILS % (AUTO) 73 % (42-75); PLATELET COUNT 253 x10^3/uL (130-400); RED BLOOD COUNT 3.21 x10^6/uL (3.82-5.3); RED CELL DISTRIBUTION WIDTH 13.9 % (9.6-15.2)
[2017-03-19] MEDS: POTASSIUM CHLORIDE 20 MEQ TAB.ER.PRT PO SCH ×4 (08:00→16:44)
[2017-03-19 08:47] VITALS: BP 133/85
[2017-03-19] MEDS: DOCUSATE 100 MG CAPSULE PO SCH ×2 (09:00→19:57)
[2017-03-19 12:45] VITALS: BP 132/86
[2017-03-19 19:49] VITALS: BP 141/89
[2017-03-20 00:40] VITALS: BP 139/95
[2017-03-20] MEDS: HYDROmorphone 2 MG/ML, 1ML IV PRN ×8 (01:29→22:33)
[2017-03-20] MEDS: PIPERACILLIN/TAZO/PMX 4.5GM 100 ML IV SCH ×3 (03:45→21:09)
[2017-03-20] MEDS: POTASSIUM CHLORIDE 20 MEQ TAB.ER.PRT PO SCH ×4 (08:00→17:25)
[2017-03-20] MEDS: DOCUSATE 100 MG CAPSULE PO SCH ×2 (08:09→19:16)
[2017-03-20 08:53] VITALS: BP 144/99
[2017-03-20] MEDS ORDERED: FENTANYL PF 100 MCG/2ML ONE (10:36)
[2017-03-20] MEDS ORDERED: MIDAZOLAM 1 MG/ML, 2ML ONE (10:36)
[2017-03-20] MEDS ORDERED: ONDANSETRON 2MG/ML, 2ML ONE (10:44)
[2017-03-20] MEDS ORDERED: PROPOFOL 10 MG/ML, 20ML ONE (10:44)
[2017-03-20] MEDS ORDERED: SUCCINYLCHOLINE 20 MG/ML, 10ML ONE (10:44)
[2017-03-20] MEDS ORDERED: FENTANYL PF 100 MCG/2ML IV PRN (12:30)
[2017-03-20] MEDS ORDERED: OXYcodone 5 MG/5 ML ORAL.SOL UDC PO PRN (12:30)
[2017-03-20] MEDS ORDERED: HYDROmorphone 1 MG/ML, 1ML IV PRN (12:30)
[2017-03-20] MEDS ORDERED: MEPERIDINE/PF 25MG/0.5ML IVPush PRN (12:30)
[2017-03-20] MEDS ORDERED: PROMETHAZINE 25 MG/ML, 1ML IV PRN (12:30)
[2017-03-20] MEDS ORDERED: LORazepam 2 MG/ML, 1ML IVPush PRN (12:30)
[2017-03-20] MEDS ORDERED: ACETAMINOPHEN 325 MG TABLET PO PRN (12:30)
[2017-03-20 13:22] VITALS: BP 144/88
[2017-03-20] MEDS ORDERED: OMNIPAQUE 350 MG/ML, 50 ML BOTTLE ONE (13:59)
[2017-03-20 18:51] VITALS: BP 121/80
[2017-03-21] MEDS: HYDROmorphone 2 MG/ML, 1ML IV PRN ×6 (00:27→17:33)
[2017-03-21 01:02] VITALS: BP 131/86
[2017-03-21 04:44] LABS: ALANINE AMINOTRANSFERASE 164 U/L (12-78); ANION GAP 6 mmol/L (5-15); CHLORIDE 107 mmol/L (98-107); CREATININE 0.42 mg/dL (0.55-1.02)
[2017-03-21 04:46] LABS: ALKALINE PHOSPHATASE 729 U/L (45-117); BILIRUBIN,TOTAL 4.4 mg/dL (0.2-1.0); TOTAL PROTEIN 6.1 g/dL (6.4-8.2)
[2017-03-21] MEDS: PIPERACILLIN/TAZO/PMX 4.5GM 100 ML IV SCH ×3 (05:00→20:38)
[2017-03-21 06:34] VITALS: BP 123/84
[2017-03-21] MEDS: POTASSIUM CHLORIDE 20 MEQ TAB.ER.PRT PO SCH ×4 (08:00→17:33)
[2017-03-21] MEDS: DOCUSATE 100 MG CAPSULE PO SCH ×3 (08:35→20:39)
[2017-03-21 12:46] VITALS: BP 143/91
[2017-03-21] MEDS: OXYcodone/APAP 5/325MG TABLET PO PRN ×2 (18:19→23:25)
[2017-03-21] MEDS: KETOROLAC 30 MG/1 ML IVPush PRN (18:20)
[2017-03-21 18:32] VITALS: BP 134/84
[2017-03-22 00:42] VITALS: BP 153/93
[2017-03-22] MEDS: KETOROLAC 30 MG/1 ML IVPush PRN (01:09)
[2017-03-22] MEDS: PIPERACILLIN/TAZO/PMX 4.5GM 100 ML IV SCH ×2 (05:54→13:47)
[2017-03-22 06:31] VITALS: BP 135/87
[2017-03-22] MEDS: POTASSIUM CHLORIDE 20 MEQ TAB.ER.PRT PO SCH ×2 (08:00→08:45)
[2017-03-22] MEDS: DOCUSATE 100 MG CAPSULE PO SCH (08:46)
[2017-03-22 09:05] LABS: ALANINE AMINOTRANSFERASE 129 U/L (12-78); ALBUMIN 2.3 g/dL (3.4-5.0); ANION GAP 7 mmol/L (5-15); CALCIUM 8.1 mg/dL (8.5-10.1); CHLORIDE 108 mmol/L (98-107); CREATININE 0.56 mg/dL (0.55-1.02)
[2017-03-22 09:08] LABS: ALKALINE PHOSPHATASE 703 U/L (45-117); TOTAL PROTEIN 6.5 g/dL (6.4-8.2)
[2017-03-22 12:01] VITALS: BP 144/88
== END 2017-03-22 14:30 | disposition home or self-care (01) | DRG 853 ==
LOC: ED 15:00 → EDIP 19:47 → 3NW 20:16
PROVIDERS: ADMIT Hospitalist; ATTEND Family Medicine
PROC: 0WJP4ZZ Inspection of Gastrointestinal Tract, Percutaneous Endoscopic Approach (ICD-10-PCS; 2017-03-15)
PROC: 0DN80ZZ Release Small Intestine, Open Approach (ICD-10-PCS; 2017-03-15)
PROC: 0DB80ZZ Excision of Small Intestine, Open Approach (ICD-10-PCS; 2017-03-15 08:00)
PROC: 0FPB8DZ Removal of Intraluminal Device from Hepatobiliary Duct, Via Natural or Artificial Opening Endoscopic (ICD-10-PCS; 2017-03-20)
PROC: 0F798DZ Dilation of Common Bile Duct with Intraluminal Device, Via Natural or Artificial Opening Endoscopic (ICD-10-PCS; principal; 2017-03-20 10:30)
DX: A41.9 Sepsis, unspecified organism (principal); E43 Unspecified severe protein-calorie malnutrition; K55.9 Vascular disorder of intestine, unspecified; K56.600 Partial intestinal obstruction, unspecified as to cause; I11.9 Hypertensive heart disease without heart failure; K83.1 Obstruction of bile duct; K81.0 Acute cholecystitis; T85.898A Other specified complication of other internal prosthetic devices, implants and grafts, initial encounter; E87.6 Hypokalemia; F12.90 Cannabis use, unspecified, uncomplicated; R74.0 Nonspecific elevation of levels of transaminase and lactic acid dehydrogenase [LDH]; K46.9 Unspecified abdominal hernia without obstruction or gangrene; Y83.8 Other surgical procedures as the cause of abnormal reaction of the patient, or of later complication, without mention of misadventure at the time of the procedure; K82.8 Other specified diseases of gallbladder; R79.89 Other specified abnormal findings of blood chemistry; D64.9 Anemia, unspecified; Z53.31 Laparoscopic surgical procedure converted to open procedure; Z80.3 Family history of malignant neoplasm of breast; Z68.29 Body mass index [BMI] 29.0-29.9, adult; Z82.49 Family history of ischemic heart disease and other diseases of the circulatory system; Z83.3 Family history of diabetes mellitus; Z90.710 Acquired absence of both cervix and uterus; Z90.721 Acquired absence of ovaries, unilateral; Z93.3 Colostomy status; Z85.09 Personal history of malignant neoplasm of other digestive organs; Z90.722 Acquired absence of ovaries, bilateral; Y92.89 Other specified places as the place of occurrence of the external cause; Z90.49 Acquired absence of other specified parts of digestive tract; Z92.21 Personal history of antineoplastic chemotherapy
CPT/HCPCS: 36415; 74018; 74177; 74181; 74328; 80048; 80053; 81001; 82040; 82248; 83605; 83690; 83735; 84100; 85025; 87040; 87324; 88104; 88112; 88307; 93005; J0171; J0696; J1170; J1885; J2250; J2405; J2543; J2704; J3010; J3490; P9045; Q9967; C1769; C1894; C2625; J0330; J2270; J7030

== ENCOUNTER 2017-03-25 16:53 | Inpatient (IN) | payer OTHER ==
[~2017-03-25] VITALS: Ht 172.7 cm; Wt 99.9 kg
[2017-03-25 17:33] LABS: MEAN CORPUSCULAR HEMOGLOBIN 29.5 pg (27.0-34.8); MEAN CORPUSCULAR HGB CONC 32.9 g/dL (32.4-35.8); MEAN CORPUSCULAR VOLUME 89.7 fL (80-100); PLATELET COUNT 358 x10^3/uL (130-400); RED BLOOD COUNT 4.32 x10^6/uL (3.82-5.3); RED CELL DISTRIBUTION WIDTH 14.8 % (9.6-15.2)
[2017-03-25 17:35] LABS: ALANINE AMINOTRANSFERASE 356 U/L (12-78); ALBUMIN 3.1 g/dL (3.4-5.0); ANION GAP 12 mmol/L (5-15); CALCIUM 8.9 mg/dL (8.5-10.1); CHLORIDE 103 mmol/L (98-107)
[2017-03-25 17:47] LABS: MD YES
[2017-03-25 17:49] LABS: <PLATELET ESTIMATE> ADEQUATE; <PLT MORPHOLOGY> NORMAL PLT MORPH; ANISOCYTOSIS 1+; BAND#(MANUAL) 1.91 x10^3/uL; BANDS%(MANUAL) 8 % (0-7); LYMPH#(MANUAL) 0.96 x10^3/uL (1-3.4); LYMPHS% (MANUAL) 4 % (22-44); MONOS#(MANUAL) 0.72 x10^3/uL (0.3-2.7); MONOS% (MANUAL) 3 % (2-9); POLYCHROMASIA 1+; SEG#(MANUAL) 20.32 x10^3/uL (1.8-6.8); SEGS% (MANUAL) 85 % (42-75)
[2017-03-25 17:50] LABS: ALKALINE PHOSPHATASE 1381 U/L (45-117); BILIRUBIN,TOTAL 4.7 mg/dL (0.2-1.0); CREATININE 0.75 mg/dL (0.55-1.02); TOTAL PROTEIN 8.1 g/dL (6.4-8.2)
[2017-03-25] MEDS: SODIUM CHLORIDE 0.9% 1,000 ML IV SCH (18:24)
[2017-03-25] MEDS ORDERED: ONDANSETRON 2MG/ML, 2ML IVPush PRN (18:30)
[2017-03-25] MEDS ORDERED: OXYcodone 5 MG/5 ML ORAL.SOL UDC PO PRN (18:30)
[2017-03-25] MEDS ORDERED: LORazepam 2 MG/ML, 1ML IV PRN (18:30)
[2017-03-25] MEDS: PLEASE ENTER HEIGHT AND WEIGHT MC SCH (18:30)
[2017-03-25] MEDS ORDERED: ACETAMINOPHEN 650 MG/20.3 ML UDC PO PRN (18:30)
[2017-03-25] MEDS ORDERED: ALPRazolam 1MG TABLET PO PRN (18:30)
[2017-03-25] MEDS ORDERED: OMNIPAQUE 350 MG/ML, 100ML BOTTLE ONE (18:48)
[2017-03-25] MEDS ORDERED: HYDROmorphone 2 MG/ML, 1ML ONE ×3 (18:51→23:11)
[2017-03-25] MEDS: HYDROmorphone 1 MG/ML, 1ML IV PRN ×3 (18:52→23:16)
[2017-03-25 19:28] VITALS: BP 109/74
[2017-03-25] MEDS: ENOXAPARIN 40 MG/0.4 ML SQ SCH (19:50)
[2017-03-25] MEDS: FAMOTIDINE 20 MG/2 ML IVPush SCH (19:50)
[2017-03-25] MEDS: PIPERACILLIN/TAZO/PMX 3.375GM 50 ML IV SCH (19:50)
[2017-03-26 00:04] VITALS: BP 99/68
[2017-03-26] MEDS ORDERED: HYDROmorphone 2 MG/ML, 1ML ONE ×4 (01:31→19:31)
[2017-03-26] MEDS: HYDROmorphone 1 MG/ML, 1ML IV PRN ×4 (01:33→19:34)
[2017-03-26] MEDS: PIPERACILLIN/TAZO/PMX 3.375GM 50 ML IV SCH ×4 (01:33→19:25)
[2017-03-26] MEDS: PLEASE ENTER HEIGHT AND WEIGHT MC SCH (02:30)
[2017-03-26] MEDS: SODIUM CHLORIDE 0.9% 1,000 ML IV SCH ×2 (03:33→16:11)
[2017-03-26 05:21] LABS: CHLORIDE 103 mmol/L (98-107)
[2017-03-26 05:36] LABS: BASOPHILS # (AUTO) 0.03 x10^3/uL (0-0.1); BASOPHILS % (AUTO) 0 % (0-1); EOSINOPHILS # (AUTO) 0.01 x10^3/uL (0-0.4); EOSINOPHILS % (AUTO) 0 % (1-7); LYMPHOCYTES # (AUTO) 0.95 x10^3/uL (1-3.4); LYMPHOCYTES % (AUTO) 7 % (22-44); MD NO; MEAN CORPUSCULAR HEMOGLOBIN 29.8 pg (27.0-34.8); MEAN CORPUSCULAR HGB CONC 33.3 g/dL (32.4-35.8); MEAN CORPUSCULAR VOLUME 89.5 fL (80-100); MEAN PLATELET VOLUME 7.2 fL (7.4-10.4); MONOCYTES # (AUTO) 0.76 x10^3/uL (0.2-0.8); MONOCYTES % (AUTO) 6 % (2-9); NEUTROPHILS # (AUTO) 11.95 x10^3/uL (1.8-6.8); NEUTROPHILS % (AUTO) 87 % (42-75); PLATELET COUNT 228 x10^3/uL (130-400); RED BLOOD COUNT 3.53 x10^6/uL (3.82-5.3); RED CELL DISTRIBUTION WIDTH 14.4 % (9.6-15.2)
[2017-03-26 05:40] LABS: ALANINE AMINOTRANSFERASE 259 U/L (12-78); ALBUMIN 2.5 g/dL (3.4-5.0); ALKALINE PHOSPHATASE 1073 U/L (45-117); ANION GAP 9 mmol/L (5-15); BILIRUBIN,TOTAL 3.7 mg/dL (0.2-1.0); CALCIUM 7.9 mg/dL (8.5-10.1); CREATININE 0.63 mg/dL (0.55-1.02); TOTAL PROTEIN 6.6 g/dL (6.4-8.2)
[2017-03-26 07:06] VITALS: BP 109/71
[2017-03-26] MEDS: FAMOTIDINE 20 MG/2 ML IVPush SCH ×2 (07:28→21:33)
[2017-03-26] MEDS ORDERED: POTASSIUM CHLORIDE 20 MEQ in SODIUM CHLORIDE 0.9% 250 ML IV ONE (07:30)
[2017-03-26 09:15] LABS: MICROSCOPIC NOT IND
[2017-03-26] MEDS: HYDROcodone/APAP 5/325 TABLET PO PRN ×4 (09:15→21:34)
[2017-03-26 09:24] LABS: CULTURE INDICATED? NO
[2017-03-26 12:32] VITALS: BP 110/74
[2017-03-26] MEDS ORDERED: HYDROcodone/APAP 5/325 TABLET ONE (17:32)
[2017-03-26 19:10] VITALS: BP 109/75
[2017-03-26] MEDS: ENOXAPARIN 40 MG/0.4 ML SQ SCH (21:33)
[2017-03-26] MEDS: DIPHENHYDRAMINE 50 MG/ML, 1ML IV PRN (22:41)
[2017-03-27] MEDS: SODIUM CHLORIDE 0.9% 1,000 ML IV SCH ×3 (00:09→15:56)
[2017-03-27 00:28] VITALS: BP 115/77
[2017-03-27] MEDS ORDERED: HYDROmorphone 2 MG/ML, 1ML ONE ×5 (00:38→23:35)
[2017-03-27] MEDS: HYDROmorphone 1 MG/ML, 1ML IV PRN ×5 (00:40→23:38)
[2017-03-27] MEDS: PIPERACILLIN/TAZO/PMX 3.375GM 50 ML IV SCH ×4 (01:42→19:17)
[2017-03-27 07:01] VITALS: BP 130/84
[2017-03-27] MEDS: HYDROcodone/APAP 5/325 TABLET PO PRN ×4 (07:45→22:31)
[2017-03-27] MEDS: FAMOTIDINE 20 MG/2 ML IVPush SCH ×2 (07:45→20:47)
[2017-03-27] MEDS: DIPHENHYDRAMINE 50 MG/ML, 1ML IV PRN ×2 (07:50→18:34)
[2017-03-27 11:49] LABS: BASOPHILS # (AUTO) 0.02 x10^3/uL (0-0.1); BASOPHILS % (AUTO) 0 % (0-1); EOSINOPHILS # (AUTO) 0.13 x10^3/uL (0-0.4); EOSINOPHILS % (AUTO) 2 % (1-7); LYMPHOCYTES # (AUTO) 0.91 x10^3/uL (1-3.4); LYMPHOCYTES % (AUTO) 17 % (22-44); MD NO; MEAN CORPUSCULAR HEMOGLOBIN 29.4 pg (27.0-34.8); MEAN CORPUSCULAR HGB CONC 32.5 g/dL (32.4-35.8); MEAN CORPUSCULAR VOLUME 90.3 fL (80-100); MEAN PLATELET VOLUME 7.2 fL (7.4-10.4); MONOCYTES # (AUTO) 0.52 x10^3/uL (0.2-0.8); MONOCYTES % (AUTO) 9 % (2-9); NEUTROPHILS # (AUTO) 3.95 x10^3/uL (1.8-6.8); NEUTROPHILS % (AUTO) 71 % (42-75); PLATELET COUNT 195 x10^3/uL (130-400); RED CELL DISTRIBUTION WIDTH 14.8 % (9.6-15.2)
[2017-03-27] MEDS: URSODIOL 300 MG CAPSULE PO SCH ×3 (12:24→20:47)
[2017-03-27 12:52] VITALS: BP 124/83
[2017-03-27] MEDS ORDERED: URSODIOL 250 MG TABLET PO SCH (13:00)
[2017-03-27 13:19] LABS: ALBUMIN 2.4 g/dL (3.4-5.0); ANION GAP 7 mmol/L (5-15); CALCIUM 8.1 mg/dL (8.5-10.1); CHLORIDE 110 mmol/L (98-107)
[2017-03-27 13:22] LABS: ALANINE AMINOTRANSFERASE 184 U/L (12-78); ALKALINE PHOSPHATASE 845 U/L (45-117); CREATININE 0.52 mg/dL (0.55-1.02); TOTAL PROTEIN 6.7 g/dL (6.4-8.2)
[2017-03-27 19:24] VITALS: BP 121/86
[2017-03-27] MEDS: ENOXAPARIN 40 MG/0.4 ML SQ SCH (20:47)
[2017-03-28 00:38] VITALS: BP 134/84
[2017-03-28] MEDS: PIPERACILLIN/TAZO/PMX 3.375GM 50 ML IV SCH ×2 (01:50→08:25)
[2017-03-28] MEDS: HYDROcodone/APAP 5/325 TABLET PO PRN ×2 (02:52→08:26)
[2017-03-28] MEDS ORDERED: HYDROmorphone 2 MG/ML, 1ML ONE ×2 (04:44→09:59)
[2017-03-28] MEDS: HYDROmorphone 1 MG/ML, 1ML IV PRN ×2 (04:48→10:05)
[2017-03-28 05:06] LABS: BASOPHILS # (AUTO) 0.02 x10^3/uL (0-0.1); BASOPHILS % (AUTO) 1 % (0-1); EOSINOPHILS # (AUTO) 0.15 x10^3/uL (0-0.4); EOSINOPHILS % (AUTO) 3 % (1-7); LYMPHOCYTES # (AUTO) 1.14 x10^3/uL (1-3.4); LYMPHOCYTES % (AUTO) 23 % (22-44); MD NO; MEAN CORPUSCULAR HEMOGLOBIN 30.1 pg (27.0-34.8); MEAN CORPUSCULAR HGB CONC 33.7 g/dL (32.4-35.8); MEAN CORPUSCULAR VOLUME 89.5 fL (80-100); MEAN PLATELET VOLUME 7.5 fL (7.4-10.4); MONOCYTES # (AUTO) 0.43 x10^3/uL (0.2-0.8); MONOCYTES % (AUTO) 9 % (2-9); NEUTROPHILS # (AUTO) 3.19 x10^3/uL (1.8-6.8); NEUTROPHILS % (AUTO) 65 % (42-75); PLATELET COUNT 178 x10^3/uL (130-400); RED BLOOD COUNT 3.23 x10^6/uL (3.82-5.3); RED CELL DISTRIBUTION WIDTH 14.7 % (9.6-15.2)
[2017-03-28 05:19] LABS: CHLORIDE 109 mmol/L (98-107)
[2017-03-28 05:35] LABS: ALANINE AMINOTRANSFERASE 160 U/L (12-78); ALBUMIN 2.2 g/dL (3.4-5.0); ALKALINE PHOSPHATASE 762 U/L (45-117); ANION GAP 9 mmol/L (5-15); BILIRUBIN,TOTAL 1.8 mg/dL (0.2-1.0); CALCIUM 7.9 mg/dL (8.5-10.1); CREATININE 0.44 mg/dL (0.55-1.02); TOTAL PROTEIN 6.5 g/dL (6.4-8.2)
[2017-03-28 08:10] VITALS: BP 147/91
[2017-03-28] MEDS: FAMOTIDINE 20 MG/2 ML IVPush SCH (08:25)
[2017-03-28] MEDS: URSODIOL 300 MG CAPSULE PO SCH (08:25)
[2017-03-28] MEDS: SODIUM CHLORIDE 0.9% 1,000 ML IV SCH ×2 (08:40)
[2017-03-28] MEDS ORDERED: KETO10TA PO (10:16)
[2017-03-28] MEDS ORDERED: URSO300C12 PO (10:17)
[2017-03-28] MEDS ORDERED: PROM25SU34 PO (10:19)
[2017-03-28] MEDS ORDERED: METR500T PO (10:24)
[2017-03-28] MEDS ORDERED: CIPR500T87 PO (10:24)
[2017-03-28 12:39] VITALS: BP 155/85
== END 2017-03-28 13:10 | disposition home or self-care (01) | DRG 444 ==
LOC: 4NOR 16:54
PROVIDERS: ADMIT Surgery; ATTEND Surgery
DX: K83.0 Cholangitis (principal); K83.1 Obstruction of bile duct; C18.1 Malignant neoplasm of appendix; E03.9 Hypothyroidism, unspecified; I10 Essential (primary) hypertension; Z80.3 Family history of malignant neoplasm of breast; Z80.41 Family history of malignant neoplasm of ovary; Z85.038 Personal history of other malignant neoplasm of large intestine; Z90.710 Acquired absence of both cervix and uterus
CPT/HCPCS: 36415; 71275; 74181; 80053; 81003; 85025; J1170; J1650; J2543; J3480; Q9967; J1200; J2060; J7030; J7050; S0028

== ENCOUNTER 2017-04-26 14:48 | Inpatient (IN) | payer OTHER ==
[~2017-04-26] VITALS: Ht 172.7 cm; Wt 89.0 kg
[~2017-04-26 14:48] MED LIST changes: +CIPR500T87 PO; +KETO10TA PO; +METR500T PO; +PROM25SU34 PO; +URSO300C12 PO
[2017-04-26 15:45] VITALS: BP 124/84
[2017-04-26] MEDS ORDERED: MORPHINE SULFATE 4 MG/ML, 1ML IVPush PRN (17:00)
[2017-04-26] MEDS: ONDANSETRON 2MG/ML, 2ML IVPush PRN (17:00)
[2017-04-26] MEDS ORDERED: SODIUM CHLORIDE 0.9% 100 ML IV SCH (17:00)
[2017-04-26] MEDS ORDERED: SODIUM CHLORIDE 0.9% 1,000 ML IV SCH (17:00)
[2017-04-26 17:28] LABS: MEAN CORPUSCULAR HEMOGLOBIN 28.5 pg (27.0-34.8); MEAN CORPUSCULAR HGB CONC 34.2 g/dL (32.4-35.8); MEAN CORPUSCULAR VOLUME 83.4 fL (80-100); MEAN PLATELET VOLUME 7.3 fL (7.4-10.4); PLATELET COUNT 228 x10^3/uL (130-400); RED BLOOD COUNT 4.27 x10^6/uL (3.82-5.3); RED CELL DISTRIBUTION WIDTH 15.1 % (9.6-15.2)
[2017-04-26 17:36] LABS: INTERNATIONAL NORMALIZED RATIO 1.22 (0.93-1.1); PROTHROMBIN TIME 12.6 Seconds (9.6-11.5)
[2017-04-26 17:42] LABS: ALANINE AMINOTRANSFERASE 246 U/L (12-78); ALBUMIN 2.9 g/dL (3.4-5.0); ANION GAP 13 mmol/L (5-15); CALCIUM 9.1 mg/dL (8.5-10.1); CHLORIDE 99 mmol/L (98-107)
[2017-04-26 17:48] LABS: MD YES
[2017-04-26 17:51] LABS: <PLATELET ESTIMATE> ADEQUATE; <RBC MORPHOLOGY> NORMAL; ALKALINE PHOSPHATASE 546 U/L (45-117); BAND#(MANUAL) 2.05 x10^3/uL; BANDS%(MANUAL) 10 % (0-7); BILIRUBIN,TOTAL 6.5 mg/dL (0.2-1.0); CREATININE 1.07 mg/dL (0.55-1.02); FREE T4 (FREE THYROXINE) 1.19 ng/dL (0.76-1.46); LYMPH#(MANUAL) 0.21 x10^3/uL (1-3.4); LYMPHS% (MANUAL) 1 % (22-44); METAMYELOCYTES# (MANUAL) 0.21 x10^3/uL (0-0); METAMYELOCYTES% (MANUAL) 1 % (0-1); MONOS#(MANUAL) 0.21 x10^3/uL (0.3-2.7); MONOS% (MANUAL) 1 % (2-9); SEG#(MANUAL) 17.84 x10^3/uL (1.8-6.8); SEGS% (MANUAL) 87 % (42-75); THYROID STIMULATING HORMONE 0.183 mIU/L (0.358-3.740); TOTAL PROTEIN 7.7 g/dL (6.4-8.2)
[2017-04-26 17:52] LABS: <PLT MORPHOLOGY> NORMAL PLT MORPH
[2017-04-26] MEDS ORDERED: POTASSIUM CHLORIDE 40 MEQ in SODIUM CHLORIDE 0.9% 500 ML IV ONE (18:00)
[2017-04-26] MEDS ORDERED: POTASSIUM CHLORIDE 20 MEQ in SODIUM CHLORIDE 0.9% 1,000 ML IV SCH (18:00)
[2017-04-26] MEDS ORDERED: PROMETHAZINE 25MG TABLET PO PRN (18:30)
[2017-04-26] MEDS: HYDROmorphone 2 MG/ML, 1ML IVPush PRN ×5 (18:39→23:03)
[2017-04-26] MEDS: PIPERACILLIN/TAZO/PMX 4.5GM 100 ML IV SCH (18:39)
[2017-04-26 19:10] VITALS: BP 91/62
[2017-04-26] MEDS ORDERED: BISACODYL 10 MG SUPP PR PRN (20:00)
[2017-04-26] MEDS ORDERED: ENALAPRILAT 1.25 MG/ML, 2ML IVPush PRN (20:00)
[2017-04-26] MEDS ORDERED: DOCUSATE 100 MG CAPSULE PO PRN (20:00)
[2017-04-26] MEDS ORDERED: POLYETHYLENE GLYCOL 17 GM PACKET PO PRN (20:00)
[2017-04-26] MEDS ORDERED: ONDANSETRON 2MG/ML, 2ML IVPush PRN (20:00)
[2017-04-26] MEDS ORDERED: hydrALAzine 20 MG/ML, 1ML IVPush PRN (20:00)
[2017-04-26] MEDS: HEPARIN 5,000 UNITS/ML, 1ML SQ SCH (20:14)
[2017-04-26 20:45] LABS: HEMOGLOBIN A1C 5.5 % (4.2-6.3)
[2017-04-26] MEDS: POTASSIUM CHLORIDE 20 MEQ TAB.ER.PRT PO SCH (21:04)
[2017-04-26] MEDS: SODIUM CHLORIDE 0.9% 1,000 ML IV SCH (21:13)
[2017-04-26] MEDS: URSODIOL 300 MG CAPSULE PO SCH (23:14)
[2017-04-27] MEDS: PIPERACILLIN/TAZO/PMX 4.5GM 100 ML IV SCH ×2 (00:37→06:43)
[2017-04-27] MEDS: HYDROmorphone 2 MG/ML, 1ML IVPush PRN ×2 (02:23→06:45)
[2017-04-27 02:51] VITALS: BP_SYST 89; BP_DIAS 57; BP_DIAS 59
[2017-04-27 04:42] LABS: ALANINE AMINOTRANSFERASE 195 U/L (12-78); ALBUMIN 2.5 g/dL (3.4-5.0); ANION GAP 7 mmol/L (5-15); CALCIUM 8.4 mg/dL (8.5-10.1); CHLORIDE 103 mmol/L (98-107); CREATININE 1.83 mg/dL (0.55-1.02)
[2017-04-27 04:43] LABS: BASOPHILS # (AUTO) 0.02 x10^3/uL (0-0.1); BASOPHILS % (AUTO) 0 % (0-1); EOSINOPHILS % (AUTO) 0 % (1-7); LYMPHOCYTES # (AUTO) 1.75 x10^3/uL (1-3.4); LYMPHOCYTES % (AUTO) 11 % (22-44); MD NO; MEAN CORPUSCULAR HEMOGLOBIN 28.4 pg (27.0-34.8); MEAN CORPUSCULAR HGB CONC 33.7 g/dL (32.4-35.8); MEAN CORPUSCULAR VOLUME 84.2 fL (80-100); MEAN PLATELET VOLUME 7.7 fL (7.4-10.4); MONOCYTES # (AUTO) 1.33 x10^3/uL (0.2-0.8); MONOCYTES % (AUTO) 8 % (2-9); NEUTROPHILS # (AUTO) 13.01 x10^3/uL (1.8-6.8); NEUTROPHILS % (AUTO) 81 % (42-75); PLATELET COUNT 198 x10^3/uL (130-400); RED BLOOD COUNT 3.73 x10^6/uL (3.82-5.3); RED CELL DISTRIBUTION WIDTH 14.8 % (9.6-15.2)
[2017-04-27 04:46] LABS: ALKALINE PHOSPHATASE 433 U/L (45-117); BILIRUBIN,TOTAL 5.1 mg/dL (0.2-1.0); CHOL/HDL RATIO 13.9; CHOLESTEROL, TOTAL 195 mg/dL (140-239); HDL CHOL % 7 % (28-40); HDL CHOLESTEROL (DIRECT) 14 mg/dL (40-60); TOTAL PROTEIN 7.1 g/dL (6.4-8.2)
[2017-04-27 04:57] LABS: LDL CHOLESTEROL,CALCULATED 138 mg/dL (54-169); LDL/HDL RATIO 9.9 (0.5-3.0); TRIGLYCERIDES 217 mg/dL (50-200); VLDL CHOLESTEROL 43 mg/dL (0-25)
[2017-04-27] MEDS: SODIUM CHLORIDE 0.9% 1,000 ML IV SCH ×4 (05:44→21:46)
[2017-04-27] MEDS: HEPARIN 5,000 UNITS/ML, 1ML SQ SCH ×3 (06:44→20:25)
[2017-04-27 07:53] VITALS: BP 103/70
[2017-04-27] MEDS: LISINOPRIL 20 MG TABLET PO SCH (08:12)
[2017-04-27] MEDS: URSODIOL 300 MG CAPSULE PO SCH ×3 (09:02→20:25)
[2017-04-27] MEDS: POTASSIUM CHLORIDE 20 MEQ TAB.ER.PRT PO SCH ×2 (09:02→20:25)
[2017-04-27] MEDS: SERTRALINE 50MG TABLET PO SCH (09:02)
[2017-04-27] MEDS: THYROID 30 MG TABLET PO SCH (09:03)
[2017-04-27] MEDS: OXYcodone IR 5MG TABLET PO PRN ×2 (10:18→14:20)
[2017-04-27] MEDS ORDERED: FENTANYL 25 MCG PATCH TD SCH (10:30)
[2017-04-27 10:50] LABS: MICROSCOPIC INDICATED
[2017-04-27 10:55] LABS: CULTURE INDICATED? YES
[2017-04-27] MEDS: PIPERACILLIN/TAZO/PMX 3.375GM 50 ML IV SCH ×3 (11:57→22:00)
[2017-04-27 15:11] VITALS: BP 102/69
[2017-04-27] MEDS: morphine SULFATE 10 MG/ML, 1ML IVPush PRN ×2 (17:52→20:25)
[2017-04-27] MEDS: ONDANSETRON 2MG/ML, 2ML IVPush PRN (17:58)
[2017-04-27] MEDS ORDERED: KETOROLAC 30 MG/1 ML IVPush SCH (18:00)
[2017-04-27 19:50] VITALS: BP 112/73
[2017-04-28 01:01] VITALS: BP 96/61
[2017-04-28] MEDS: HEPARIN 5,000 UNITS/ML, 1ML SQ SCH ×4 (04:00→20:31)
[2017-04-28] MEDS: morphine SULFATE 10 MG/ML, 1ML IVPush PRN ×2 (05:09)
[2017-04-28 05:10] LABS: BASOPHILS # (AUTO) 0.04 x10^3/uL (0-0.1); BASOPHILS % (AUTO) 1 % (0-1); EOSINOPHILS # (AUTO) 0.04 x10^3/uL (0-0.4); EOSINOPHILS % (AUTO) 1 % (1-7); LYMPHOCYTES # (AUTO) 1.26 x10^3/uL (1-3.4); LYMPHOCYTES % (AUTO) 16 % (22-44); MD NO; MEAN CORPUSCULAR HEMOGLOBIN 27.8 pg (27.0-34.8); MEAN CORPUSCULAR VOLUME 84.2 fL (80-100); MEAN PLATELET VOLUME 7.7 fL (7.4-10.4); MONOCYTES # (AUTO) 0.67 x10^3/uL (0.2-0.8); MONOCYTES % (AUTO) 8 % (2-9); NEUTROPHILS # (AUTO) 6.14 x10^3/uL (1.8-6.8); NEUTROPHILS % (AUTO) 75 % (42-75); PLATELET COUNT 161 x10^3/uL (130-400); RED BLOOD COUNT 3.62 x10^6/uL (3.82-5.3); RED CELL DISTRIBUTION WIDTH 14.5 % (9.6-15.2)
[2017-04-28] MEDS: ONDANSETRON 2MG/ML, 2ML IVPush PRN ×2 (05:10)
[2017-04-28] MEDS: PIPERACILLIN/TAZO/PMX 3.375GM 50 ML IV SCH ×4 (05:10→22:23)
[2017-04-28 05:15] LABS: INTERNATIONAL NORMALIZED RATIO 1.03 (0.93-1.1); PROTHROMBIN TIME 10.7 Seconds (9.6-11.5)
[2017-04-28 05:21] LABS: ALBUMIN 2.4 g/dL (3.4-5.0); ANION GAP 8 mmol/L (5-15); CALCIUM 8.4 mg/dL (8.5-10.1); CHLORIDE 106 mmol/L (98-107)
[2017-04-28 05:26] LABS: ALANINE AMINOTRANSFERASE 146 U/L (12-78); ALKALINE PHOSPHATASE 376 U/L (45-117); BILIRUBIN,TOTAL 3.6 mg/dL (0.2-1.0); CREATININE 0.65 mg/dL (0.55-1.02); TOTAL PROTEIN 6.8 g/dL (6.4-8.2)
[2017-04-28 07:33] VITALS: BP 123/84
[2017-04-28] MEDS: SODIUM CHLORIDE 0.9% 1,000 ML IV SCH ×2 (07:46→19:47)
[2017-04-28] MEDS: URSODIOL 300 MG CAPSULE PO SCH ×3 (07:46→20:30)
[2017-04-28] MEDS: POTASSIUM CHLORIDE 20 MEQ TAB.ER.PRT PO SCH ×2 (07:47→20:30)
[2017-04-28] MEDS: SERTRALINE 50MG TABLET PO SCH (07:47)
[2017-04-28] MEDS: LISINOPRIL 20 MG TABLET PO SCH (07:47)
[2017-04-28] MEDS: THYROID 30 MG TABLET PO SCH (07:47)
[2017-04-28] MEDS: HYDROmorphone 2MG TABLET PO PRN ×2 (09:37→22:28)
[2017-04-28 14:04] VITALS: BP 111/75
[2017-04-28] MEDS ORDERED: DEXAMETHASONE 4 MG/ML, 5ML ONE (15:13)
[2017-04-28] MEDS ORDERED: ROCURONIUM 10 MG/ML,10ML ONE (15:13)
[2017-04-28] MEDS ORDERED: FENTANYL PF 100 MCG/2ML ONE (15:13)
[2017-04-28] MEDS ORDERED: PROPOFOL 10 MG/ML, 20ML ONE (15:13)
[2017-04-28] MEDS ORDERED: SUCCINYLCHOLINE 20 MG/ML, 10ML ONE (15:13)
[2017-04-28] MEDS ORDERED: ONDANSETRON 2MG/ML, 2ML ONE (15:13)
[2017-04-28] MEDS ORDERED: hydrALAzine 20 MG/ML, 1ML IV PRN (16:00)
[2017-04-28] MEDS ORDERED: MIDAZOLAM 1 MG/ML, 2ML IV PRN (16:00)
[2017-04-28] MEDS ORDERED: PROMETHAZINE 12.5 MG SUPP PR PRN (16:00)
[2017-04-28] MEDS ORDERED: OXYcodone 5 MG/5 ML ORAL.SOL UDC PO PRN (16:00)
[2017-04-28] MEDS ORDERED: MEPERIDINE/PF 25MG/0.5ML IVPush PRN (16:00)
[2017-04-28] MEDS ORDERED: FENTANYL PF 100 MCG/2ML IV PRN (16:00)
[2017-04-28] MEDS ORDERED: LABETALOL 5MG/ML, 20ML IV PRN (16:00)
[2017-04-28] MEDS ORDERED: ONDANSETRON 2MG/ML, 2ML IVPush PRN (16:00)
[2017-04-28] MEDS ORDERED: ALBUTEROL SULFATE 2.5 MG/3 ML NPPB PRN (16:00)
[2017-04-28] MEDS ORDERED: morphine SULFATE 10 MG/ML, 1ML IV PRN (16:00)
[2017-04-28] MEDS ORDERED: OMNIPAQUE 350 MG/ML, 50 ML BOTTLE ONE (16:04)
[2017-04-28 16:49] VITALS: BP 127/81
[2017-04-28 19:19] VITALS: BP 112/76
[2017-04-29 01:08] VITALS: BP 123/82
[2017-04-29] MEDS: SODIUM CHLORIDE 0.9% 1,000 ML IV SCH ×2 (02:51→11:00)
[2017-04-29] MEDS: PIPERACILLIN/TAZO/PMX 3.375GM 50 ML IV SCH ×2 (04:09→11:00)
[2017-04-29] MEDS: HEPARIN 5,000 UNITS/ML, 1ML SQ SCH ×2 (04:09→11:00)
[2017-04-29 04:40] LABS: CHLORIDE 111 mmol/L (98-107)
[2017-04-29 04:46] LABS: ALANINE AMINOTRANSFERASE 111 U/L (12-78); ALBUMIN 2.2 g/dL (3.4-5.0); ALKALINE PHOSPHATASE 351 U/L (45-117); ANION GAP 8 mmol/L (5-15); BILIRUBIN,TOTAL 2.2 mg/dL (0.2-1.0); CALCIUM 8.3 mg/dL (8.5-10.1); CREATININE 0.48 mg/dL (0.55-1.02); TOTAL PROTEIN 6.5 g/dL (6.4-8.2)
[2017-04-29 07:43] VITALS: BP 133/74
[2017-04-29] MEDS: THYROID 30 MG TABLET PO SCH (07:51)
[2017-04-29] MEDS: LISINOPRIL 20 MG TABLET PO SCH (07:52)
[2017-04-29] MEDS: POTASSIUM CHLORIDE 20 MEQ TAB.ER.PRT PO SCH (07:52)
[2017-04-29] MEDS: URSODIOL 300 MG CAPSULE PO SCH (07:52)
[2017-04-29] MEDS: SERTRALINE 50MG TABLET PO SCH (07:52)
[2017-04-29] MEDS ORDERED: LACT1CAP24 PO (09:10)
[2017-04-29] MEDS ORDERED: DOCU-131 PO (09:10)
[2017-04-29] MEDS ORDERED: METR500T PO (09:10)
[2017-04-29] MEDS ORDERED: CIPR500T3 PO (09:10)
[2017-04-29 13:24] VITALS: BP 125/78
[2017-04-30] MEDS ORDERED: FENTANYL REMOVE PATCH NOTE XX SCH (10:30)
== END 2017-04-29 14:05 | disposition home or self-care (01) | DRG 871 ==
LOC: 3NW 14:58
PROVIDERS: ADMIT Internal Medicine; ATTEND Internal Medicine
PROC: 0F798DZ Dilation of Common Bile Duct with Intraluminal Device, Via Natural or Artificial Opening Endoscopic (ICD-10-PCS; 2017-04-28)
PROC: BF111ZZ Fluoroscopy of Biliary and Pancreatic Ducts using Low Osmolar Contrast (ICD-10-PCS; 2017-04-28)
PROC: 0FPB8DZ Removal of Intraluminal Device from Hepatobiliary Duct, Via Natural or Artificial Opening Endoscopic (ICD-10-PCS; 2017-04-28)
PROC: 0FC98ZZ Extirpation of Matter from Common Bile Duct, Via Natural or Artificial Opening Endoscopic (ICD-10-PCS; principal; 2017-04-28 15:15)
DX: A41.9 Sepsis, unspecified organism (principal); E43 Unspecified severe protein-calorie malnutrition; N17.0 Acute kidney failure with tubular necrosis; K80.31 Calculus of bile duct with cholangitis, unspecified, with obstruction; C18.1 Malignant neoplasm of appendix; E03.9 Hypothyroidism, unspecified; E87.6 Hypokalemia; I10 Essential (primary) hypertension; Z80.3 Family history of malignant neoplasm of breast; Z80.41 Family history of malignant neoplasm of ovary; Z85.038 Personal history of other malignant neoplasm of large intestine; Z90.710 Acquired absence of both cervix and uterus; Z68.29 Body mass index [BMI] 29.0-29.9, adult
CPT/HCPCS: 36415; 74328; 80053; 80061; 81001; 83036; 83605; 83690; 83735; 84439; 84443; 85025; 85610; 87040; 87086; J1100; J1170; J1644; J2405; J2543; J2704; J3010; J3480; Q0169; Q9967; C1769; C1876; J0330; J2270; J7030; J7040

== ENCOUNTER → 2017-08-02 | Outpatient (CLI) | payer OTHER ==
[~2017-08-02] MED LIST changes: +CIPR500T3 PO; +DOCU-131 PO; +LACT1CAP24 PO; +OMNIPAQUE 350 MG/ML, 100ML BOTTLE ONE
== END | disposition home or self-care (01) ==
LOC: RAD 13:06
PROVIDERS: ATTEND Specialist
DX: J98.11 Atelectasis (principal); R59.1 Generalized enlarged lymph nodes; C18.1 Malignant neoplasm of appendix
CPT/HCPCS: 71275; Q9967

== ENCOUNTER 2017-08-21 16:02 | Inpatient (IN) | payer OTHER ==
[~2017-08-21] VITALS: Ht 172.7 cm; Wt 82.4 kg
[~2017-08-21 16:02] MED LIST changes: -OMNIPAQUE 350 MG/ML, 100ML BOTTLE ONE
[2017-08-21] MEDS ORDERED: HYDROmorphone 1 MG/ML, 1ML IVPush PRN (17:30)
[2017-08-21] MEDS ORDERED: SODIUM CHLORIDE FLUSH 10ML SYR IVF ONE (17:30)
[2017-08-21] MEDS ORDERED: ONDANSETRON 2MG/ML, 2ML IVPush ONE (17:30)
[2017-08-21 17:36] LABS: BASOPHILS # (AUTO) 0.01 x10^3/uL (0-0.1); BASOPHILS % (AUTO) 0 % (0-1); EOSINOPHILS # (AUTO) 0.09 x10^3/uL (0-0.4); EOSINOPHILS % (AUTO) 1 % (1-7); LYMPHOCYTES # (AUTO) 1.14 x10^3/uL (1-3.4); LYMPHOCYTES % (AUTO) 16 % (22-44); MD NO; MEAN CORPUSCULAR HEMOGLOBIN 29.4 pg (27.0-34.8); MEAN CORPUSCULAR HGB CONC 33.1 g/dL (32.4-35.8); MEAN CORPUSCULAR VOLUME 88.8 fL (80-100); MEAN PLATELET VOLUME 7.2 fL (7.4-10.4); MONOCYTES # (AUTO) 0.47 x10^3/uL (0.2-0.8); MONOCYTES % (AUTO) 7 % (2-9); NEUTROPHILS # (AUTO) 5.28 x10^3/uL (1.8-6.8); NEUTROPHILS % (AUTO) 76 % (42-75); PLATELET COUNT 324 x10^3/uL (130-400); RED BLOOD COUNT 4.79 x10^6/uL (3.82-5.3); RED CELL DISTRIBUTION WIDTH 16.9 % (9.6-15.2)
[2017-08-21 17:37] LABS: INTERNATIONAL NORMALIZED RATIO 1.09 (0.93-1.1); PROTHROMBIN TIME 11.2 Seconds (9.6-11.5)
[2017-08-21 17:45] LABS: ALBUMIN 3.1 g/dL (3.4-5.0); ANION GAP 10 mmol/L (5-15); CALCIUM 9.1 mg/dL (8.5-10.1); CHLORIDE 104 mmol/L (98-107)
[2017-08-21 18:00] LABS: ALANINE AMINOTRANSFERASE 265 U/L (12-78); ALKALINE PHOSPHATASE 1034 U/L (45-117); BILIRUBIN,TOTAL 5.2 mg/dL (0.2-1.0); CREATININE 0.65 mg/dL (0.55-1.02); TOTAL PROTEIN 8.2 g/dL (6.4-8.2)
[2017-08-21] MEDS ORDERED: ONDANSETRON 2MG/ML, 2ML ONE (18:25)
[2017-08-21] MEDS ORDERED: HYDROmorphone 2 MG/ML, 1ML ONE (18:25)
[2017-08-21] MEDS ORDERED: AMLO5TAB2 PO (18:46)
[2017-08-21] MEDS ORDERED: CAPE500T24 PO (18:46)
[2017-08-21] MEDS ORDERED: PROM25TA10 PO (18:46)
[2017-08-21] MEDS ORDERED: HYDR25TA6 PO (18:46)
[2017-08-21] MEDS ORDERED: ASCO10004 PO (18:46)
[2017-08-21] MEDS ORDERED: hydrALAzine 20 MG/ML, 1ML IVPush PRN (20:00)
[2017-08-21] MEDS ORDERED: SODIUM CHLORIDE FLUSH 10ML SYR IVF PRN (20:00)
[2017-08-21] MEDS ORDERED: morphine SULFATE 10 MG/ML, 1ML IVPush PRN (20:00)
[2017-08-21] MEDS ORDERED: DOCUSATE 100 MG CAPSULE PO PRN (20:00)
[2017-08-21] MEDS ORDERED: ACETAMINOPHEN 325 MG TABLET PO PRN (20:00)
[2017-08-21] MEDS ORDERED: POTASSIUM CHLORIDE 20 MEQ TAB.ER.PRT PO ONE (20:00)
[2017-08-21] MEDS ORDERED: POLYETHYLENE GLYCOL 17 GM PACKET PO PRN (20:00)
[2017-08-21] MEDS ORDERED: PROMETHAZINE 25MG TABLET PO PRN (20:00)
[2017-08-21] MEDS ORDERED: BISACODYL 10 MG SUPP PR PRN (20:00)
[2017-08-21] MEDS ORDERED: DIPHENHYDRAMINE 25 MG CAPSULE ONE (20:22)
[2017-08-21] MEDS ORDERED: POTASSIUM CHLORIDE 20 MEQ TAB.ER.PRT ONE (20:22)
[2017-08-21] MEDS ORDERED: DIPHENHYDRAMINE 25 MG CAPSULE PO ONE (20:30)
[2017-08-21] MEDS: CAPECITABINE 500 MG HOMEMEDPO SCH (21:00)
[2017-08-21 21:09] VITALS: BP 124/85
[2017-08-21] MEDS: SODIUM CHLORIDE 0.9% 1,000 ML IV SCH (21:54)
[2017-08-22 01:17] VITALS: BP 111/79
[2017-08-22] MEDS ORDERED: HYDROmorphone 2 MG/ML, 1ML IV ONE (02:30)
[2017-08-22] MEDS: THYROID 30 MG TABLET PO SCH (05:49)
[2017-08-22 05:56] LABS: BASOPHILS # (AUTO) 0.03 x10^3/uL (0-0.1); BASOPHILS % (AUTO) 1 % (0-1); EOSINOPHILS # (AUTO) 0.12 x10^3/uL (0-0.4); EOSINOPHILS % (AUTO) 2 % (1-7); LYMPHOCYTES # (AUTO) 1.22 x10^3/uL (1-3.4); LYMPHOCYTES % (AUTO) 23 % (22-44); MD NO; MEAN CORPUSCULAR HEMOGLOBIN 29.5 pg (27.0-34.8); MEAN CORPUSCULAR HGB CONC 33.3 g/dL (32.4-35.8); MEAN CORPUSCULAR VOLUME 88.5 fL (80-100); MONOCYTES # (AUTO) 0.49 x10^3/uL (0.2-0.8); MONOCYTES % (AUTO) 9 % (2-9); NEUTROPHILS # (AUTO) 3.58 x10^3/uL (1.8-6.8); NEUTROPHILS % (AUTO) 66 % (42-75); PLATELET COUNT 274 x10^3/uL (130-400); RED BLOOD COUNT 4.25 x10^6/uL (3.82-5.3); RED CELL DISTRIBUTION WIDTH 17.5 % (9.6-15.2)
[2017-08-22 06:04] LABS: ALANINE AMINOTRANSFERASE 228 U/L (12-78); ALBUMIN 2.8 g/dL (3.4-5.0); ANION GAP 6 mmol/L (5-15); CALCIUM 8.5 mg/dL (8.5-10.1); CHLORIDE 108 mmol/L (98-107); CREATININE 0.49 mg/dL (0.55-1.02)
[2017-08-22 06:14] LABS: ALKALINE PHOSPHATASE 940 U/L (45-117); BILIRUBIN,TOTAL 3.5 mg/dL (0.2-1.0); TOTAL PROTEIN 7.4 g/dL (6.4-8.2)
[2017-08-22 06:48] VITALS: BP 105/73
[2017-08-22] MEDS: SODIUM CHLORIDE 0.9% 1,000 ML IV SCH (08:16)
[2017-08-22] MEDS: SERTRALINE 50MG TABLET PO SCH (08:17)
[2017-08-22] MEDS: ASCORBIC ACID 500 MG TABLET PO SCH (08:20)
[2017-08-22] MEDS: LISINOPRIL 20 MG TABLET PO SCH (08:21)
[2017-08-22] MEDS: CAPECITABINE 500 MG HOMEMEDPO SCH (08:21)
[2017-08-22] MEDS: AMLODIPINE 5 MG TABLET PO SCH (08:21)
[2017-08-22] MEDS: FENTANYL PF 100 MCG/2ML IVPush PRN ×3 (10:04→20:06)
[2017-08-22] MEDS ORDERED: LORazepam 2 MG/ML, 1ML ONE (11:34)
[2017-08-22] MEDS ORDERED: LORazepam 2 MG/ML, 1ML IVPush ONE ×2 (12:00→13:00)
[2017-08-22 12:42] VITALS: BP 108/75
[2017-08-22 19:43] VITALS: BP 118/76
[2017-08-23] MEDS: FENTANYL PF 100 MCG/2ML IVPush PRN ×4 (01:48→23:11)
[2017-08-23 01:58] VITALS: BP 114/67
[2017-08-23 04:30] LABS: BASOPHILS # (AUTO) 0.03 x10^3/uL (0-0.1); BASOPHILS % (AUTO) 1 % (0-1); EOSINOPHILS # (AUTO) 0.12 x10^3/uL (0-0.4); EOSINOPHILS % (AUTO) 3 % (1-7); LYMPHOCYTES # (AUTO) 1.08 x10^3/uL (1-3.4); LYMPHOCYTES % (AUTO) 24 % (22-44); MD NO; MEAN CORPUSCULAR HEMOGLOBIN 29.2 pg (27.0-34.8); MEAN CORPUSCULAR HGB CONC 32.8 g/dL (32.4-35.8); MEAN CORPUSCULAR VOLUME 88.8 fL (80-100); MEAN PLATELET VOLUME 6.9 fL (7.4-10.4); MONOCYTES # (AUTO) 0.37 x10^3/uL (0.2-0.8); MONOCYTES % (AUTO) 8 % (2-9); NEUTROPHILS # (AUTO) 2.85 x10^3/uL (1.8-6.8); NEUTROPHILS % (AUTO) 64 % (42-75); PLATELET COUNT 240 x10^3/uL (130-400); RED BLOOD COUNT 4.25 x10^6/uL (3.82-5.3); RED CELL DISTRIBUTION WIDTH 17.4 % (9.6-15.2)
[2017-08-23 04:40] LABS: ALANINE AMINOTRANSFERASE 211 U/L (12-78); ALBUMIN 2.8 g/dL (3.4-5.0); ANION GAP 6 mmol/L (5-15); CALCIUM 8.8 mg/dL (8.5-10.1); CHLORIDE 109 mmol/L (98-107); CREATININE 0.45 mg/dL (0.55-1.02)
[2017-08-23 04:43] LABS: ALKALINE PHOSPHATASE 870 U/L (45-117); BILIRUBIN,TOTAL 2.2 mg/dL (0.2-1.0); TOTAL PROTEIN 6.9 g/dL (6.4-8.2)
[2017-08-23] MEDS: THYROID 30 MG TABLET PO SCH (05:39)
[2017-08-23 07:00] VITALS: BP 122/84
[2017-08-23] MEDS: LISINOPRIL 20 MG TABLET PO SCH (07:42)
[2017-08-23] MEDS: AMLODIPINE 5 MG TABLET PO SCH (07:42)
[2017-08-23] MEDS: ASCORBIC ACID 500 MG TABLET PO SCH (07:42)
[2017-08-23] MEDS: SERTRALINE 50MG TABLET PO SCH (07:42)
[2017-08-23 13:14] VITALS: BP 110/73
[2017-08-23 19:37] VITALS: BP 133/85
[2017-08-23] MEDS: ONDANSETRON 2MG/ML, 2ML IVPush PRN (20:52)
[2017-08-24 03:16] VITALS: BP 121/88
[2017-08-24 04:40] LABS: BASOPHILS # (AUTO) 0.03 x10^3/uL (0-0.1); BASOPHILS % (AUTO) 1 % (0-1); EOSINOPHILS # (AUTO) 0.11 x10^3/uL (0-0.4); EOSINOPHILS % (AUTO) 3 % (1-7); LYMPHOCYTES # (AUTO) 1.29 x10^3/uL (1-3.4); LYMPHOCYTES % (AUTO) 34 % (22-44); MD NO; MEAN CORPUSCULAR HEMOGLOBIN 29.2 pg (27.0-34.8); MEAN CORPUSCULAR HGB CONC 33.1 g/dL (32.4-35.8); MEAN CORPUSCULAR VOLUME 88.2 fL (80-100); MEAN PLATELET VOLUME 7.1 fL (7.4-10.4); MONOCYTES # (AUTO) 0.38 x10^3/uL (0.2-0.8); MONOCYTES % (AUTO) 10 % (2-9); NEUTROPHILS # (AUTO) 1.97 x10^3/uL (1.8-6.8); NEUTROPHILS % (AUTO) 52 % (42-75); PLATELET COUNT 222 x10^3/uL (130-400); RED BLOOD COUNT 4.19 x10^6/uL (3.82-5.3); RED CELL DISTRIBUTION WIDTH 17.4 % (9.6-15.2)
[2017-08-24 04:50] LABS: ALANINE AMINOTRANSFERASE 181 U/L (12-78); ALBUMIN 2.8 g/dL (3.4-5.0); ANION GAP 8 mmol/L (5-15); CALCIUM 8.8 mg/dL (8.5-10.1); CHLORIDE 108 mmol/L (98-107); CREATININE 0.47 mg/dL (0.55-1.02)
[2017-08-24 04:52] LABS: ALKALINE PHOSPHATASE 864 U/L (45-117); BILIRUBIN,TOTAL 2.6 mg/dL (0.2-1.0); TOTAL PROTEIN 6.9 g/dL (6.4-8.2)
[2017-08-24] MEDS: THYROID 30 MG TABLET PO SCH (04:54)
[2017-08-24] MEDS: FENTANYL PF 100 MCG/2ML IVPush PRN ×2 (05:00→15:39)
[2017-08-24 06:54] VITALS: BP 121/83
[2017-08-24] MEDS: LISINOPRIL 20 MG TABLET PO SCH (09:00)
[2017-08-24] MEDS: ASCORBIC ACID 500 MG TABLET PO SCH (09:00)
[2017-08-24] MEDS: SERTRALINE 50MG TABLET PO SCH (09:00)
[2017-08-24] MEDS: AMLODIPINE 5 MG TABLET PO SCH (09:00)
[2017-08-24] MEDS ORDERED: MIDAZOLAM 1 MG/ML, 2ML ONE ×2 (10:03)
[2017-08-24] MEDS ORDERED: FENTANYL PF 250 MCG/5ML ONE ×2 (10:03)
[2017-08-24] MEDS ORDERED: ROCURONIUM 10MG/ML,5ML ONE (10:12)
[2017-08-24] MEDS ORDERED: PROPOFOL 10 MG/ML, 20ML ONE ×2 (10:12)
[2017-08-24] MEDS ORDERED: LIDOCAINE-MPF 2% ,5ML ONE (10:12)
[2017-08-24] MEDS ORDERED: CIPROFLOXACIN/PMX 400MG/200ML 200 ML ONE (10:27)
[2017-08-24] MEDS ORDERED: DEXAMETHASONE 4 MG/ML, 1ML ONE ×2 (10:32)
[2017-08-24] MEDS ORDERED: ONDANSETRON 2MG/ML, 2ML ONE ×2 (10:33)
[2017-08-24] MEDS ORDERED: HALOPERIDOL 5 MG/ML IV PRN (11:00)
[2017-08-24] MEDS ORDERED: LORazepam 2 MG/ML, 1ML IVPush PRN (11:00)
[2017-08-24] MEDS ORDERED: HYDROmorphone 1 MG/ML, 1ML IV PRN (11:00)
[2017-08-24] MEDS ORDERED: FENTANYL PF 100 MCG/2ML IV PRN (11:00)
[2017-08-24] MEDS ORDERED: ACETAMINOPHEN 325 MG TABLET PO PRN (11:00)
[2017-08-24] MEDS ORDERED: hydrALAzine 20 MG/ML, 1ML IV PRN (11:00)
[2017-08-24] MEDS ORDERED: LABETALOL 5MG/ML, 20ML IV PRN (11:00)
[2017-08-24] MEDS ORDERED: PROMETHAZINE 25 MG/ML, 1ML IV PRN (11:00)
[2017-08-24] MEDS ORDERED: OXYcodone 5 MG/5 ML ORAL.SOL UDC PO PRN (11:00)
[2017-08-24] MEDS ORDERED: MEPERIDINE/PF 25MG/0.5ML IVPush PRN (11:00)
[2017-08-24] MEDS ORDERED: OMNIPAQUE 350 MG/ML, 50 ML BOTTLE ONE (11:04)
[2017-08-24] MEDS: ONDANSETRON 2MG/ML, 2ML IVPush PRN (11:56)
[2017-08-24 12:30] VITALS: BP 134/82
[2017-08-24 18:33] VITALS: BP 123/82
[2017-08-25 02:15] VITALS: BP 127/76
[2017-08-25 04:24] LABS: BASOPHILS # (AUTO) 0.02 x10^3/uL (0-0.1); BASOPHILS % (AUTO) 0 % (0-1); EOSINOPHILS # (AUTO) 0.01 x10^3/uL (0-0.4); EOSINOPHILS % (AUTO) 0 % (1-7); LYMPHOCYTES # (AUTO) 0.85 x10^3/uL (1-3.4); LYMPHOCYTES % (AUTO) 13 % (22-44); MD NO; MEAN CORPUSCULAR HEMOGLOBIN 29.2 pg (27.0-34.8); MEAN CORPUSCULAR HGB CONC 33.2 g/dL (32.4-35.8); MEAN CORPUSCULAR VOLUME 87.9 fL (80-100); MEAN PLATELET VOLUME 7.3 fL (7.4-10.4); MONOCYTES # (AUTO) 0.32 x10^3/uL (0.2-0.8); MONOCYTES % (AUTO) 5 % (2-9); NEUTROPHILS # (AUTO) 5.22 x10^3/uL (1.8-6.8); NEUTROPHILS % (AUTO) 81 % (42-75); PLATELET COUNT 263 x10^3/uL (130-400); RED BLOOD COUNT 4.35 x10^6/uL (3.82-5.3); RED CELL DISTRIBUTION WIDTH 16.9 % (9.6-15.2)
[2017-08-25 04:41] LABS: CALCIUM 9.2 mg/dL (8.5-10.1); CREATININE 0.56 mg/dL (0.55-1.02)
[2017-08-25 04:42] LABS: ALANINE AMINOTRANSFERASE 198 U/L (12-78); ALBUMIN 2.9 g/dL (3.4-5.0); ALKALINE PHOSPHATASE 919 U/L (45-117); BILIRUBIN,TOTAL 1.7 mg/dL (0.2-1.0); TOTAL PROTEIN 7.4 g/dL (6.4-8.2)
[2017-08-25 04:44] LABS: ANION GAP 6 mmol/L (5-15); CHLORIDE 107 mmol/L (98-107)
[2017-08-25] MEDS: THYROID 30 MG TABLET PO SCH (05:31)
[2017-08-25 09:04] VITALS: BP 145/90
[2017-08-25] MEDS: ASCORBIC ACID 500 MG TABLET PO SCH (09:09)
[2017-08-25] MEDS: SERTRALINE 50MG TABLET PO SCH (09:09)
[2017-08-25] MEDS: AMLODIPINE 5 MG TABLET PO SCH (09:09)
[2017-08-25] MEDS: LISINOPRIL 20 MG TABLET PO SCH (09:09)
== END 2017-08-25 17:00 | disposition home or self-care (01) | DRG 919 ==
LOC: ED 20:11 → EDIP 20:25 → 3NW 20:40 → DCLOUNGE 08-25 16:40
PROVIDERS: ADMIT Internal Medicine; ATTEND Internal Medicine
PROC: 0F778DZ Dilation of Common Hepatic Duct with Intraluminal Device, Via Natural or Artificial Opening Endoscopic (ICD-10-PCS; 2017-08-24)
PROC: 0F798ZZ Dilation of Common Bile Duct, Via Natural or Artificial Opening Endoscopic (ICD-10-PCS; principal; 2017-08-24 10:00)
DX: T85.590A Other mechanical complication of bile duct prosthesis, initial encounter (principal); K83.1 Obstruction of bile duct; C18.1 Malignant neoplasm of appendix; E44.0 Moderate protein-calorie malnutrition; K81.0 Acute cholecystitis; Y83.8 Other surgical procedures as the cause of abnormal reaction of the patient, or of later complication, without mention of misadventure at the time of the procedure; Y92.89 Other specified places as the place of occurrence of the external cause; R00.0 Tachycardia, unspecified; R73.9 Hyperglycemia, unspecified; E03.9 Hypothyroidism, unspecified; E87.6 Hypokalemia; I11.9 Hypertensive heart disease without heart failure; K57.10 Diverticulosis of small intestine without perforation or abscess without bleeding; K76.0 Fatty (change of) liver, not elsewhere classified; Z82.49 Family history of ischemic heart disease and other diseases of the circulatory system; Z83.3 Family history of diabetes mellitus; Z85.038 Personal history of other malignant neoplasm of large intestine; Z90.710 Acquired absence of both cervix and uterus; Z68.27 Body mass index [BMI] 27.0-27.9, adult
CPT/HCPCS: 36415; 74181; 74328; 76700; 78226; 80053; 82140; 83605; 83690; 83735; 84443; 85025; 85610; 85730; 87040; 96374; J0744; J1100; J1170; J2250; J2405; J2704; J3010; J3490; Q9967; A9537; C1769; C1876; C9898; J2060; J7030; Q0163; Q0177

== ENCOUNTER 2017-09-18 20:24 | Emergency (ER) | payer OTHER ==
[~2017-09-18] VITALS: Ht 172.7 cm; Wt 82.0 kg
[~2017-09-18 20:24] MED LIST changes: +AMLO5TAB2 PO; +ASCO10004 PO; +CAPE500T24 PO; +HYDR25TA6 PO; +PROM25TA10 PO
[2017-09-18 20:27] VITALS: BP 121/71
[2017-09-18] MEDS ORDERED: SODIUM CHLORIDE FLUSH 10ML SYR IVF ONE (21:00)
[2017-09-18] MEDS ORDERED: ONDANSETRON 2MG/ML, 2ML IVPush ONE (21:00)
[2017-09-18] MEDS ORDERED: HYDROmorphone 1 MG/ML, 1ML IVPush PRN (21:00)
[2017-09-18] MEDS ORDERED: ONDANSETRON 2MG/ML, 2ML ONE (21:08)
[2017-09-18] MEDS ORDERED: HYDROmorphone 2 MG/ML, 1ML ONE (21:09)
[2017-09-18 21:19] LABS: BASOPHILS # (AUTO) 0.02 x10^3/uL (0-0.1); BASOPHILS % (AUTO) 0 % (0-1); EOSINOPHILS # (AUTO) 0.17 x10^3/uL (0-0.4); EOSINOPHILS % (AUTO) 2 % (1-7); HCT (SEDRATE) 37.9 % (34.6-47.8); LYMPHOCYTES # (AUTO) 1.12 x10^3/uL (1-3.4); LYMPHOCYTES % (AUTO) 12 % (22-44); MD NO; MEAN CORPUSCULAR HEMOGLOBIN 29.6 pg (27.0-34.8); MEAN CORPUSCULAR VOLUME 87.1 fL (80-100); MEAN PLATELET VOLUME 7.4 fL (7.4-10.4); MONOCYTES # (AUTO) 0.51 x10^3/uL (0.2-0.8); MONOCYTES % (AUTO) 6 % (2-9); NEUTROPHILS # (AUTO) 7.47 x10^3/uL (1.8-6.8); NEUTROPHILS % (AUTO) 80 % (42-75); PLATELET COUNT 188 x10^3/uL (130-400); RED BLOOD COUNT 4.36 x10^6/uL (3.82-5.3); RED CELL DISTRIBUTION WIDTH 19.8 % (9.6-15.2)
[2017-09-18 21:28] LABS: ALANINE AMINOTRANSFERASE 75 U/L (12-78); ALBUMIN 3.6 g/dL (3.4-5.0); ANION GAP 8 mmol/L (5-15); CALCIUM 8.8 mg/dL (8.5-10.1); CHLORIDE 107 mmol/L (98-107); HIGH-SENSITIVITY CRP 0.78 mg/dL (0.02-0.30)
[2017-09-18 21:31] LABS: ALKALINE PHOSPHATASE 240 U/L (45-117); BILIRUBIN,TOTAL 0.5 mg/dL (0.2-1.0); TOTAL PROTEIN 7.4 g/dL (6.4-8.2)
[2017-09-18] MEDS ORDERED: LIDOCAINE 1%-EPI 1:100K, 30ML ONE (22:32)
== END 2017-09-19 01:26 | disposition home or self-care (01) ==
LOC: ED 09-19 01:20
DX: M25.562 Pain in left knee (principal); M25.561 Pain in right knee
CPT/HCPCS: 29505; 36415; 73564; 80053; 84550; 85025; 85651; 86141; 87070; 87205; 93970; 96374; 96375; 99285; J1170; J2405

== ENCOUNTER → 2017-12-10 | Outpatient (CLI) | payer OTHER ==
[~2017-12-10] MED LIST changes: -AMLO10TA2 PO; +AMLO10TA6 PO; -AMLO5TAB2 PO; +AMLO5TAB7 PO
== END | disposition home or self-care (01) ==
LOC: ROC 07:47
PROVIDERS: ATTEND Radiology Radiation Oncology
DX: C79.51 Secondary malignant neoplasm of bone (principal)
CPT/HCPCS: 99214; G0463

== ENCOUNTER → 2017-12-15 | Outpatient (CLI) | payer OTHER ==
[~2017-12-15] MED LIST changes: +FENTANYL PF 100 MCG/2ML ONE; +FLUMAZENIL 0.1 MG/1 ML, 5ML ONE; +GADOBUTROL 7.5 MMOL/7.5 ML PFS ONE; +MIDAZOLAM 1 MG/ML, 5ML ONE; +NALOXONE 1 MG/ML, 2ML ONE
== END | disposition home or self-care (01) ==
LOC: RAD 11:53
PROVIDERS: ATTEND Radiology Radiation Oncology
DX: C18.9 Malignant neoplasm of colon, unspecified (principal); C79.51 Secondary malignant neoplasm of bone; R20.0 Anesthesia of skin
CPT/HCPCS: 70553; 99156; 99157; A9585; J1642; J2250; J3010; J2310

== ENCOUNTER 2017-12-16 08:02 | Day surgery (SDC) | payer OTHER ==
[~2017-12-16] VITALS: Ht 172.7 cm; Wt 73.2 kg
[~2017-12-16 08:02] MED LIST changes: -CIPROFLOXACIN/PMX 400MG/200ML 200 ML IVPB ONE
[2017-12-16] MEDS ORDERED: CIPROFLOXACIN/PMX 400MG/200ML 200 ML IVPB ONE (08:30)
[2017-12-16 09:05] VITALS: BP 106/76
[2017-12-16] MEDS ORDERED: FLUMAZENIL 0.1 MG/1 ML, 5ML ONE (09:52)
[2017-12-16] MEDS ORDERED: FENTANYL PF 100 MCG/2ML ONE (09:52)
[2017-12-16] MEDS ORDERED: NALOXONE 1 MG/ML, 2ML ONE (09:52)
[2017-12-16] MEDS ORDERED: LIDOCAINE-MPF 1%, 5ML ONE (09:52)
[2017-12-16] MEDS ORDERED: MIDAZOLAM 1 MG/ML, 5ML ONE (09:52)
== END 2017-12-16 12:00 | disposition home or self-care (01) ==
LOC: OUT 08:02
PROVIDERS: ATTEND Urology
DX: N13.5 Crossing vessel and stricture of ureter without hydronephrosis (principal); I10 Essential (primary) hypertension; F41.9 Anxiety disorder, unspecified; Z79.899 Other long term (current) drug therapy; Z98.890 Other specified postprocedural states
CPT/HCPCS: 50693; 99156; 99157; C1729; C1751; C1769; J0744; J2250; J3010; J2310

== ENCOUNTER → 2017-12-16 | Outpatient (CLI) | payer OTHER ==
[~2017-12-16] MED LIST changes: +CIPROFLOXACIN/PMX 400MG/200ML 200 ML IVPB ONE; -FENTANYL PF 100 MCG/2ML ONE; -FLUMAZENIL 0.1 MG/1 ML, 5ML ONE; -GADOBUTROL 7.5 MMOL/7.5 ML PFS ONE; -MIDAZOLAM 1 MG/ML, 5ML ONE; -NALOXONE 1 MG/ML, 2ML ONE
== END | disposition home or self-care (01) ==
LOC: RAD 12-13 08:40
PROVIDERS: ATTEND Urology
DX: Z02.9 Encounter for administrative examinations, unspecified (principal)
CPT/HCPCS: 50693; J0744

== ENCOUNTER → 2017-12-20 | Outpatient (CLI) | payer OTHER ==
[~2017-12-20] MED LIST changes: +OMNIPAQUE 350 MG/ML, 100ML BOTTLE ONE
== END | disposition home or self-care (01) ==
LOC: RAD 10:12
PROVIDERS: ATTEND Specialist
DX: K76.9 Liver disease, unspecified (principal); R91.8 Other nonspecific abnormal finding of lung field; N13.2 Hydronephrosis with renal and ureteral calculous obstruction; R59.1 Generalized enlarged lymph nodes
CPT/HCPCS: 71260; 74177; Q9967

== ENCOUNTER 2018-01-24 15:21 | Inpatient (IN) | payer OTHER ==
[~2018-01-24] VITALS: Ht 172.7 cm; Wt 74.1 kg
[~2018-01-24 15:21] MED LIST changes: +AMLO-150 PO; -AMLO5TAB7 PO; -HYDR12.58 PO; +HYDROCHLOROTH12.5 MG PO; -OMNIPAQUE 350 MG/ML, 100ML BOTTLE ONE
[2018-01-24] MEDS ORDERED: HYDROmorphone 1 MG/ML, 1ML IVPush PRN (16:00)
[2018-01-24] MEDS ORDERED: SODIUM CHLORIDE 0.9% 1,000ML IVBOLUS ONE ×2 (16:00→17:00)
[2018-01-24] MEDS ORDERED: ONDANSETRON 2MG/ML, 2ML IVPush ONE (16:00)
[2018-01-24] MEDS ORDERED: ACETAMINOPHEN 500 MG TABLET PO ONE (16:00)
[2018-01-24] MEDS ORDERED: ONDANSETRON 2MG/ML, 2ML ONE (16:03)
[2018-01-24] MEDS ORDERED: HYDROmorphone 2 MG/ML, 1ML ONE (16:04)
[2018-01-24] MEDS ORDERED: ACETAMINOPHEN 500 MG TABLET ONE (16:04)
[2018-01-24 16:25] LABS: MEAN CORPUSCULAR HEMOGLOBIN 25.9 pg (27.0-34.8); MEAN CORPUSCULAR HGB CONC 32.6 g/dL (32.4-35.8); MEAN CORPUSCULAR VOLUME 79.6 fL (80-100); MEAN PLATELET VOLUME 6.9 fL (7.4-10.4); PLATELET COUNT 337 x10^3/uL (130-400); RED BLOOD COUNT 3.66 x10^6/uL (3.82-5.3); RED CELL DISTRIBUTION WIDTH 18.2 % (9.6-15.2)
[2018-01-24 16:27] LABS: RAPID INFLUENZA A Negative (Negative); RAPID INFLUENZA B Negative (Negative)
[2018-01-24 16:34] LABS: ALANINE AMINOTRANSFERASE 99 U/L (12-78); ALBUMIN 2.1 g/dL (3.4-5.0); ANION GAP 12 mmol/L (5-15); CALCIUM 6.3 mg/dL (8.5-10.1); CHLORIDE 103 mmol/L (98-107)
[2018-01-24 16:47] LABS: ALKALINE PHOSPHATASE 967 U/L (45-117); BILIRUBIN,TOTAL 2.5 mg/dL (0.2-1.0); TOTAL PROTEIN 6.4 g/dL (6.4-8.2)
[2018-01-24] MEDS ORDERED: POTASSIUM CHLORIDE 40 MEQ in SODIUM CHLORIDE 0.9% 500 ML IV ONE (17:00)
[2018-01-24] MEDS ORDERED: CEFTRIAXONE PMX 1GM/50ML 50 ML IV ONE (17:00)
[2018-01-24 17:02] LABS: BASOPHILS # (AUTO) 0.01 x10^3/uL (0-0.1); BASOPHILS % (AUTO) 1 % (0-1); EOSINOPHILS # (AUTO) 0.01 x10^3/uL (0-0.4); EOSINOPHILS % (AUTO) 0 % (1-7); LYMPHOCYTES # (AUTO) 0.27 x10^3/uL (1-3.4); LYMPHOCYTES % (AUTO) 10 % (22-44); MD MORPH REVIEW ONLY; MONOCYTES # (AUTO) 0.25 x10^3/uL (0.2-0.8); MONOCYTES % (AUTO) 9 % (2-9); NEUTROPHILS # (AUTO) 2.28 x10^3/uL (1.8-6.8); NEUTROPHILS % (AUTO) 81 % (42-75)
[2018-01-24 17:04] LABS: ANISOCYTOSIS 1+; HYPOCHROMIA 1+; MICROCYTOSIS 1+; SPHEROCYTES 1+
[2018-01-24 17:05] LABS: <PLATELET ESTIMATE> ADEQUATE; <PLT MORPHOLOGY> NORMAL PLT MORPH; POLYCHROMASIA 1+
[2018-01-24] MEDS ORDERED: CEFTRIAXONE PMX 1GM/50ML 50 ML ONE (17:19)
[2018-01-24 17:25] LABS: MICROSCOPIC INDICATED
[2018-01-24 17:26] LABS: CULTURE INDICATED? YES
[2018-01-24 17:28] LABS: CULTURE INDICATED? YES; MICROSCOPIC INDICATED
[2018-01-24] MEDS ORDERED: LIDODERM 5% PATCH TD ONE (17:30)
[2018-01-24] MEDS ORDERED: VANCOMYCIN PER PHARMACY MC PRN ×2 (18:00→19:30)
[2018-01-24] MEDS ORDERED: VANCOMYCIN 1,400 MG in SODIUM CHLORIDE 0.9% 250 ML IV ONE (18:00)
[2018-01-24] MEDS ORDERED: LORazepam 2 MG/ML, 1ML ONE (18:09)
[2018-01-24] MEDS ORDERED: LORazepam 2 MG/ML, 1ML IVPush ONE (18:30)
[2018-01-24] MEDS ORDERED: BISACODYL 10 MG SUPP PR PRN (19:30)
[2018-01-24] MEDS ORDERED: OMNIPAQUE 350 MG/ML, 100ML BOTTLE ONE (19:39)
[2018-01-24 20:45] VITALS: BP 106/72
[2018-01-24] MEDS ORDERED: PHARMACOKINETIC MONITORING MC PRN (21:00)
[2018-01-24] MEDS ORDERED: ENOXAPARIN 80 MG/0.8 ML SQ SCH (21:30)
[2018-01-24] MEDS ORDERED: MAGNESIUM SULFATE 4 GM in SODIUM CHLORIDE 0.9% 100 ML IV ONE (21:30)
[2018-01-24] MEDS ORDERED: MAGNESIUM SULFATE PMX 4GM/100M 100 ML IVPB ONE (22:30)
[2018-01-24] MEDS: D5%-0.45NACL+KCL 20MEQ 1,000 ML IV SCH (22:30)
[2018-01-24] MEDS ORDERED: LORazepam 2 MG/ML, 1ML IVPush PRN (23:00)
[2018-01-24] MEDS: HYDROmorphone 2 MG/ML, 1ML IV PRN (23:23)
[2018-01-25 02:01] VITALS: BP 110/74
[2018-01-25] MEDS ORDERED: CEFTRIAXONE PMX 1GM/50ML 50 ML IV SCH (05:00)
[2018-01-25 05:24] LABS: BASOPHILS # (AUTO) 0.01 x10^3/uL (0-0.1); BASOPHILS % (AUTO) 0 % (0-1); EOSINOPHILS # (AUTO) 0.01 x10^3/uL (0-0.4); EOSINOPHILS % (AUTO) 0 % (1-7); LYMPHOCYTES # (AUTO) 0.58 x10^3/uL (1-3.4); LYMPHOCYTES % (AUTO) 16 % (22-44); MD NO; MEAN CORPUSCULAR HEMOGLOBIN 26.4 pg (27.0-34.8); MEAN CORPUSCULAR HGB CONC 32.8 g/dL (32.4-35.8); MEAN CORPUSCULAR VOLUME 80.4 fL (80-100); MEAN PLATELET VOLUME 6.6 fL (7.4-10.4); MONOCYTES # (AUTO) 0.41 x10^3/uL (0.2-0.8); MONOCYTES % (AUTO) 11 % (2-9); NEUTROPHILS # (AUTO) 2.67 x10^3/uL (1.8-6.8); NEUTROPHILS % (AUTO) 73 % (42-75); PLATELET COUNT 365 x10^3/uL (130-400); RED BLOOD COUNT 3.42 x10^6/uL (3.82-5.3); RED CELL DISTRIBUTION WIDTH 18.7 % (9.6-15.2)
[2018-01-25 05:41] LABS: ANION GAP 11 mmol/L (5-15); CALCIUM 6.2 mg/dL (8.5-10.1); CHLORIDE 108 mmol/L (98-107)
[2018-01-25 05:46] LABS: ALANINE AMINOTRANSFERASE 89 U/L (12-78); ALKALINE PHOSPHATASE 911 U/L (45-117); BILIRUBIN,TOTAL 3.1 mg/dL (0.2-1.0); CREATININE 0.51 mg/dL (0.55-1.02); TOTAL PROTEIN 5.8 g/dL (6.4-8.2)
[2018-01-25] MEDS: HYDROmorphone 2 MG/ML, 1ML IV PRN ×6 (05:49→23:06)
[2018-01-25] MEDS: THYROID 30 MG TABLET PO SCH (06:33)
[2018-01-25] MEDS: VANCOMYCIN 1,400 MG in SODIUM CHLORIDE 0.9% 250 ML IV SCH ×2 (06:34→18:52)
[2018-01-25] MEDS: D5%-0.45NACL+KCL 20MEQ 1,000 ML IV SCH (06:34)
[2018-01-25] MEDS ORDERED: HEPARIN 5,000 UNITS/ML, 1ML IV ONE (08:30)
[2018-01-25] MEDS ORDERED: POTASSIUM CHLORIDE 40 MEQ in SODIUM CHLORIDE 0.9% 500 ML IV ONE (08:30)
[2018-01-25 09:11] VITALS: BP 110/77
[2018-01-25] MEDS: OxyconTIN ER 15 MG TAB.ER PO SCH ×2 (09:23→20:03)
[2018-01-25] MEDS: MEROPENEM 1 GM in SODIUM CHLORIDE 0.9% 100 ML IV SCH ×2 (09:37→18:04)
[2018-01-25] MEDS: HEPARIN 25,000 UNITS/500ML PMX 500 ML IV PRN (10:38)
[2018-01-25] MEDS: ASCORBIC ACID 500 MG TABLET PO SCH (10:43)
[2018-01-25] MEDS: SERTRALINE 50MG TABLET PO SCH (10:43)
[2018-01-25 13:40] VITALS: BP 109/77
[2018-01-25 17:18] LABS: ANION GAP 10 mmol/L (5-15); CALCIUM 6.1 mg/dL (8.5-10.1); CHLORIDE 108 mmol/L (98-107); CREATININE 0.46 mg/dL (0.55-1.02)
[2018-01-25] MEDS: LIDODERM 5% PATCH TD SCH (18:06)
[2018-01-25] MEDS: HEPARIN 5,000 UNITS/ML, 1ML IV PRN (18:11)
[2018-01-25 21:06] VITALS: BP 112/80
[2018-01-25] MEDS: D5%-0.45NACL+KCL 40MEQ 1,000 ML IV SCH (22:13)
[2018-01-26] MEDS: MEROPENEM 1 GM in SODIUM CHLORIDE 0.9% 100 ML IV SCH ×4 (00:21→22:36)
[2018-01-26] MEDS: HEPARIN 5,000 UNITS/ML, 1ML IV PRN ×4 (00:47→23:13)
[2018-01-26 01:55] VITALS: BP 114/80
[2018-01-26] MEDS: HYDROmorphone 2 MG/ML, 1ML IV PRN ×7 (02:11→22:36)
[2018-01-26 05:51] LABS: VANCOMYCIN,TROUGH 9.1 mcg/mL (5.0-10.0)
[2018-01-26] MEDS: THYROID 30 MG TABLET PO SCH (06:01)
[2018-01-26] MEDS: VANCOMYCIN 1,400 MG in SODIUM CHLORIDE 0.9% 250 ML IV SCH (06:30)
[2018-01-26 07:14] VITALS: BP 117/84
[2018-01-26] MEDS: HEPARIN 25,000 UNITS/500ML PMX 500 ML IV PRN ×2 (08:28→23:14)
[2018-01-26] MEDS: OxyconTIN ER 15 MG TAB.ER PO SCH ×2 (08:29→21:05)
[2018-01-26] MEDS: SERTRALINE 50MG TABLET PO SCH (08:30)
[2018-01-26] MEDS: ASCORBIC ACID 500 MG TABLET PO SCH (09:00)
[2018-01-26 09:08] LABS: MEAN CORPUSCULAR HEMOGLOBIN 25.3 pg (27.0-34.8); MEAN CORPUSCULAR HGB CONC 31.5 g/dL (32.4-35.8); MEAN CORPUSCULAR VOLUME 80.4 fL (80-100); MEAN PLATELET VOLUME 7.2 fL (7.4-10.4); PLATELET COUNT 388 x10^3/uL (130-400); RED CELL DISTRIBUTION WIDTH 18.9 % (9.6-15.2)
[2018-01-26 09:27] LABS: ALBUMIN 1.9 g/dL (3.4-5.0); ANION GAP 10 mmol/L (5-15); CALCIUM 6.2 mg/dL (8.5-10.1); CHLORIDE 106 mmol/L (98-107)
[2018-01-26 09:30] LABS: ALANINE AMINOTRANSFERASE 100 U/L (12-78); ALKALINE PHOSPHATASE 891 U/L (45-117); BILIRUBIN,TOTAL 3.2 mg/dL (0.2-1.0); CREATININE 0.44 mg/dL (0.55-1.02)
[2018-01-26] MEDS: D5%-0.45NACL+KCL 40MEQ 1,000 ML IV SCH ×2 (10:39→21:22)
[2018-01-26 10:56] LABS: BASOPHILS % (AUTO) 0 % (0-1); EOSINOPHILS # (AUTO) 0.09 x10^3/uL (0-0.4); EOSINOPHILS % (AUTO) 2 % (1-7); LYMPHOCYTES # (AUTO) 0.76 x10^3/uL (1-3.4); LYMPHOCYTES % (AUTO) 14 % (22-44); MONOCYTES # (AUTO) 0.71 x10^3/uL (0.2-0.8); MONOCYTES % (AUTO) 13 % (2-9); NEUTROPHILS # (AUTO) 3.91 x10^3/uL (1.8-6.8); NEUTROPHILS % (AUTO) 71 % (42-75)
[2018-01-26 10:59] LABS: MD NO
[2018-01-26] MEDS: POLYETHYLENE GLYCOL 17 GM PACKET PO SCH ×2 (14:32→21:05)
[2018-01-26 14:34] VITALS: BP 122/79
[2018-01-26] MEDS: VANCOMYCIN 1,500 MG in SODIUM CHLORIDE 0.9% 250 ML IV SCH (16:21)
[2018-01-26] MEDS: LIDODERM 5% PATCH TD SCH (18:12)
[2018-01-26 20:40] VITALS: BP 112/80
[2018-01-26] MEDS: ONDANSETRON 2MG/ML, 2ML IVPush PRN (21:21)
[2018-01-27 00:53] VITALS: BP 104/73
[2018-01-27] MEDS: HYDROmorphone 2 MG/ML, 1ML IV PRN ×5 (01:38→18:04)
[2018-01-27] MEDS: HEPARIN 25,000 UNITS/500ML PMX 500 ML IV PRN ×3 (02:03→18:22)
[2018-01-27] MEDS: VANCOMYCIN 1,500 MG in SODIUM CHLORIDE 0.9% 250 ML IV SCH ×2 (04:43→20:08)
[2018-01-27] MEDS: D5%-0.45NACL+KCL 40MEQ 1,000 ML IV SCH ×2 (04:44→14:00)
[2018-01-27 05:16] LABS: CHLORIDE 107 mmol/L (98-107)
[2018-01-27 05:23] LABS: MEAN CORPUSCULAR HEMOGLOBIN 25.8 pg (27.0-34.8); MEAN CORPUSCULAR HGB CONC 32.2 g/dL (32.4-35.8); MEAN CORPUSCULAR VOLUME 79.9 fL (80-100); PLATELET COUNT 377 x10^3/uL (130-400); RED BLOOD COUNT 3.36 x10^6/uL (3.82-5.3); RED CELL DISTRIBUTION WIDTH 18.9 % (9.6-15.2)
[2018-01-27 05:31] LABS: ALANINE AMINOTRANSFERASE 96 U/L (12-78); ALBUMIN 1.7 g/dL (3.4-5.0); ALKALINE PHOSPHATASE 910 U/L (45-117); ANION GAP 8 mmol/L (5-15); BILIRUBIN,TOTAL 3.8 mg/dL (0.2-1.0); CREATININE 0.39 mg/dL (0.55-1.02)
[2018-01-27] MEDS: HEPARIN 5,000 UNITS/ML, 1ML IV PRN ×2 (05:33→20:01)
[2018-01-27 05:35] LABS: CALCIUM 5.9 mg/dL (8.5-10.1)
[2018-01-27] MEDS ORDERED: CALCIUM GLUCONATE 4.6 MEQ in SODIUM CHLORIDE 0.9% 50 ML IV ONE (06:00)
[2018-01-27 06:05] LABS: MD YES
[2018-01-27 06:07] LABS: ANISOCYTOSIS 1+; BAND#(MANUAL) 0.13 x10^3/uL; BANDS%(MANUAL) 2 % (0-7); EOS#(MANUAL) 0.13 x10^3/uL (0.0-0.4); EOS% (MANUAL) 2 % (1-7); LYMPH#(MANUAL) 0.77 x10^3/uL (1-3.4); LYMPHS% (MANUAL) 12 % (22-44); METAMYELOCYTES# (MANUAL) 0.19 x10^3/uL (0-0); METAMYELOCYTES% (MANUAL) 3 % (0-1); MICROCYTOSIS 1+; MONOS#(MANUAL) 0.26 x10^3/uL (0.3-2.7); MONOS% (MANUAL) 4 % (2-9); MYELOCYTES# (MANUAL) 0.19 x10^3/uL (0-0); MYELOCYTES% (MANUAL) 3 % (0-0); SEG#(MANUAL) 4.74 x10^3/uL (1.8-6.8); SEGS% (MANUAL) 74 % (42-75)
[2018-01-27 06:08] LABS: POLYCHROMASIA 1+
[2018-01-27 06:11] LABS: SPHEROCYTES 1+
[2018-01-27 06:13] LABS: <PLATELET ESTIMATE> ADEQUATE; <PLT MORPHOLOGY> NORMAL PLT MORPH
[2018-01-27] MEDS: THYROID 30 MG TABLET PO SCH (06:17)
[2018-01-27 09:03] VITALS: BP 110/75
[2018-01-27] MEDS: ASCORBIC ACID 500 MG TABLET PO SCH (09:56)
[2018-01-27] MEDS: OxyconTIN ER 15 MG TAB.ER PO SCH ×2 (09:56→20:41)
[2018-01-27] MEDS: MEROPENEM 1 GM in SODIUM CHLORIDE 0.9% 100 ML IV SCH ×2 (09:57→18:04)
[2018-01-27] MEDS: POLYETHYLENE GLYCOL 17 GM PACKET PO SCH ×2 (09:57→20:41)
[2018-01-27] MEDS: SERTRALINE 50MG TABLET PO SCH (09:57)
[2018-01-27 12:50] VITALS: BP 106/70
[2018-01-27] MEDS: LIDODERM 5% PATCH TD SCH (18:00)
[2018-01-27] MEDS: IRON SUCROSE COMPLEX 100MG/5ML IV SCH (18:03)
[2018-01-27] MEDS: ONDANSETRON 2MG/ML, 2ML IVPush PRN (20:41)
[2018-01-27 21:09] VITALS: BP 112/77
[2018-01-27] MEDS: HYDROmorphone 2 MG/ML, 1ML IVPush PRN (21:34)
[2018-01-28] MEDS: HYDROmorphone 2 MG/ML, 1ML IVPush PRN ×6 (00:32→23:00)
[2018-01-28 00:38] VITALS: BP 104/72
[2018-01-28] MEDS: MEROPENEM 1 GM in SODIUM CHLORIDE 0.9% 100 ML IV SCH ×3 (01:57→22:04)
[2018-01-28] MEDS: THYROID 30 MG TABLET PO SCH (05:16)
[2018-01-28 07:19] LABS: ALANINE AMINOTRANSFERASE 81 U/L (12-78); ALBUMIN 1.6 g/dL (3.4-5.0); ANION GAP 8 mmol/L (5-15); CALCIUM 6.2 mg/dL (8.5-10.1); CHLORIDE 107 mmol/L (98-107); CREATININE 0.42 mg/dL (0.55-1.02)
[2018-01-28 07:21] LABS: ALKALINE PHOSPHATASE 931 U/L (45-117); BILIRUBIN,TOTAL 4.7 mg/dL (0.2-1.0); TOTAL PROTEIN 5.7 g/dL (6.4-8.2)
[2018-01-28 07:27] LABS: MEAN CORPUSCULAR HEMOGLOBIN 25.4 pg (27.0-34.8); MEAN CORPUSCULAR HGB CONC 31.8 g/dL (32.4-35.8); MEAN CORPUSCULAR VOLUME 79.8 fL (80-100); MEAN PLATELET VOLUME 6.7 fL (7.4-10.4); PLATELET COUNT 386 x10^3/uL (130-400); RED BLOOD COUNT 3.44 x10^6/uL (3.82-5.3); RED CELL DISTRIBUTION WIDTH 19.3 % (9.6-15.2)
[2018-01-28 08:41] LABS: MD YES
[2018-01-28] MEDS: OxyconTIN ER 15 MG TAB.ER PO SCH ×2 (08:44→20:34)
[2018-01-28] MEDS: ASCORBIC ACID 500 MG TABLET PO SCH (08:44)
[2018-01-28] MEDS: VANCOMYCIN 1,500 MG in SODIUM CHLORIDE 0.9% 250 ML IV SCH ×2 (08:44→23:01)
[2018-01-28] MEDS: IRON SUCROSE COMPLEX 100MG/5ML IV SCH (08:45)
[2018-01-28] MEDS: SERTRALINE 50MG TABLET PO SCH (08:45)
[2018-01-28] MEDS: POLYETHYLENE GLYCOL 17 GM PACKET PO SCH ×2 (08:47→22:04)
[2018-01-28 09:07] LABS: BAND#(MANUAL) 0.47 x10^3/uL; BANDS%(MANUAL) 5 % (0-7); METAMYELOCYTES# (MANUAL) 0.74 x10^3/uL (0-0); METAMYELOCYTES% (MANUAL) 8 % (0-1); MONOS#(MANUAL) 0.28 x10^3/uL (0.3-2.7); MONOS% (MANUAL) 3 % (2-9); SEG#(MANUAL) 7.81 x10^3/uL (1.8-6.8); SEGS% (MANUAL) 84 % (42-75)
[2018-01-28 09:08] LABS: ANISOCYTOSIS 1+; MICROCYTOSIS 1+; POLYCHROMASIA 1+; SPHEROCYTES 1+
[2018-01-28 09:09] LABS: <PLATELET ESTIMATE> ADEQUATE; <PLT MORPHOLOGY> NORMAL PLT MORPH
[2018-01-28 09:25] VITALS: BP 109/77
[2018-01-28] MEDS ORDERED: CALCIUM GLUCONATE 9.2 MEQ in SODIUM CHLORIDE 0.9% 100 ML IV ONE (12:00)
[2018-01-28] MEDS ORDERED: FENTANYL PF 250 MCG/5ML ONE (13:05)
[2018-01-28] MEDS ORDERED: ROCURONIUM 10MG/ML,5ML ONE (13:35)
[2018-01-28] MEDS ORDERED: SUCCINYLCHOLINE 20 MG/ML, 10ML ONE (13:35)
[2018-01-28] MEDS ORDERED: CEFAZOLIN 1,000 MG ONE (13:35)
[2018-01-28] MEDS ORDERED: PROPOFOL 10 MG/ML, 20ML ONE (13:35)
[2018-01-28] MEDS ORDERED: DEXAMETHASONE 4 MG/ML, 1ML ONE (13:35)
[2018-01-28] MEDS ORDERED: NEOSTIGMINE 1 MG/ML, 10ML ONE (13:35)
[2018-01-28] MEDS ORDERED: ONDANSETRON 2MG/ML, 2ML ONE (13:35)
[2018-01-28] MEDS ORDERED: GLYCOPYRROLATE 0.2MG/1ML, 5ML ONE (13:35)
[2018-01-28] MEDS ORDERED: HYDROmorphone 2 MG/ML, 1ML IVPush PRN (14:00)
[2018-01-28] MEDS ORDERED: OXYcodone 5 MG/5 ML ORAL.SOL UDC PO PRN (14:00)
[2018-01-28] MEDS ORDERED: ONDANSETRON ODT 8 MG PO PRN (14:00)
[2018-01-28] MEDS ORDERED: FENTANYL PF 100 MCG/2ML IV PRN (14:00)
[2018-01-28] MEDS ORDERED: DIAZEPAM 5 MG/ML, 2ML IVPush PRN (14:00)
[2018-01-28] MEDS ORDERED: ONDANSETRON 2MG/ML, 2ML IV PRN (14:00)
[2018-01-28] MEDS ORDERED: LORazepam 2 MG/ML, 1ML IVPush PRN (14:00)
[2018-01-28] MEDS ORDERED: MEPERIDINE/PF 25MG/0.5ML IVPush PRN (14:00)
[2018-01-28] MEDS ORDERED: PHENYLEPHRINE 10 MG/ML ONE (14:35)
[2018-01-28] MEDS: ALBUMIN HUMAN 25% 50 ML IV SCH (15:45)
[2018-01-28] MEDS: LIDODERM 5% PATCH TD SCH (19:01)
[2018-01-28 19:40] VITALS: BP 115/81
[2018-01-28] MEDS ORDERED: HEPARIN 5,000 UNITS/ML, 1ML IV ONE (22:00)
[2018-01-28] MEDS: HEPARIN 25,000 UNITS/500ML PMX 500 ML IV PRN (22:04)
[2018-01-29] MEDS: ALBUMIN HUMAN 25% 50 ML IV SCH ×2 (00:53→10:05)
[2018-01-29 03:00] VITALS: BP 122/83
[2018-01-29] MEDS: HYDROmorphone 2 MG/ML, 1ML IVPush PRN ×6 (03:49→22:35)
[2018-01-29 04:58] LABS: MEAN CORPUSCULAR HEMOGLOBIN 25.8 pg (27.0-34.8); MEAN CORPUSCULAR HGB CONC 32.2 g/dL (32.4-35.8); MEAN PLATELET VOLUME 6.7 fL (7.4-10.4); PLATELET COUNT 376 x10^3/uL (130-400); RED BLOOD COUNT 3.32 x10^6/uL (3.82-5.3); RED CELL DISTRIBUTION WIDTH 19.4 % (9.6-15.2)
[2018-01-29] MEDS: HEPARIN 5,000 UNITS/ML, 1ML IV PRN (06:05)
[2018-01-29] MEDS: THYROID 30 MG TABLET PO SCH (06:06)
[2018-01-29] MEDS: MEROPENEM 1 GM in SODIUM CHLORIDE 0.9% 100 ML IV SCH ×3 (06:06→22:41)
[2018-01-29 06:16] LABS: MD YES
[2018-01-29 06:17] LABS: BAND#(MANUAL) 0.39 x10^3/uL; BANDS%(MANUAL) 4 % (0-7); EOS% (MANUAL) 2 % (1-7); LYMPH#(MANUAL) 1.27 x10^3/uL (1-3.4); LYMPHS% (MANUAL) 13 % (22-44); METAMYELOCYTES# (MANUAL) 0.49 x10^3/uL (0-0); METAMYELOCYTES% (MANUAL) 5 % (0-1); MONOS#(MANUAL) 0.78 x10^3/uL (0.3-2.7); MONOS% (MANUAL) 8 % (2-9); MYELOCYTES# (MANUAL) 0.49 x10^3/uL (0-0); MYELOCYTES% (MANUAL) 5 % (0-0); NRBC % (MANUAL) 2 % (0-1); SEG#(MANUAL) 6.17 x10^3/uL (1.8-6.8); SEGS% (MANUAL) 63 % (42-75)
[2018-01-29 06:18] LABS: ANISOCYTOSIS 1+; MICROCYTOSIS 1+; POLYCHROMASIA 1+
[2018-01-29 06:19] LABS: <PLATELET ESTIMATE> ADEQUATE; <PLT MORPHOLOGY> NORMAL PLT MORPH
[2018-01-29 07:20] VITALS: BP 115/78
[2018-01-29 08:10] LABS: CHLORIDE 109 mmol/L (98-107)
[2018-01-29 08:20] LABS: ALANINE AMINOTRANSFERASE 67 U/L (12-78); ALBUMIN 1.8 g/dL (3.4-5.0); ALKALINE PHOSPHATASE 877 U/L (45-117); ANION GAP 9 mmol/L (5-15); BILIRUBIN,TOTAL 1.8 mg/dL (0.2-1.0); CALCIUM 6.3 mg/dL (8.5-10.1); CREATININE 0.38 mg/dL (0.55-1.02); TOTAL PROTEIN 5.5 g/dL (6.4-8.2); VANCOMYCIN,TROUGH 23.9 mcg/mL (5.0-10.0)
[2018-01-29] MEDS: POLYETHYLENE GLYCOL 17 GM PACKET PO SCH ×2 (09:00→22:24)
[2018-01-29] MEDS ORDERED: CALCIUM GLUCONATE 9.2 MEQ in SODIUM CHLORIDE 0.9% 100 ML IV ONE (09:30)
[2018-01-29] MEDS: SERTRALINE 50MG TABLET PO SCH (10:05)
[2018-01-29] MEDS: IRON SUCROSE COMPLEX 100MG/5ML IV SCH (10:05)
[2018-01-29] MEDS: ASCORBIC ACID 500 MG TABLET PO SCH (10:05)
[2018-01-29] MEDS: OxyconTIN ER 15 MG TAB.ER PO SCH ×2 (10:06→20:30)
[2018-01-29] MEDS: POTASSIUM CHLORIDE 20 MEQ TAB.ER.PRT PO SCH ×2 (10:10→17:50)
[2018-01-29] MEDS: NEUTRA PHOS K 250 MG TABLET PO SCH ×3 (10:10→22:24)
[2018-01-29] MEDS: MAGNESIUM OXIDE 400 MG TABLET PO SCH ×2 (10:10→22:24)
[2018-01-29] MEDS: ENOXAPARIN 80 MG/0.8 ML SQ SCH ×2 (12:23→23:38)
[2018-01-29] MEDS: BUMETANIDE 0.25 MG/ML, 4ML IV SCH ×2 (12:25→22:24)
[2018-01-29 13:43] VITALS: BP 118/79
[2018-01-29] MEDS ORDERED: VANCOMYCIN 1,600 MG in SODIUM CHLORIDE 0.9% 250 ML IV SCH (17:00)
[2018-01-29] MEDS: LIDODERM 5% PATCH TD SCH (17:50)
[2018-01-29 19:47] VITALS: BP 114/78
[2018-01-30] MEDS ORDERED: OxyconTIN ER 15 MG TAB.ER PO PRN (00:30)
[2018-01-30] MEDS: HYDROmorphone 2 MG/ML, 1ML IVPush PRN ×7 (01:36→21:49)
[2018-01-30 01:45] VITALS: BP 113/73
[2018-01-30] MEDS: MEROPENEM 1 GM in SODIUM CHLORIDE 0.9% 100 ML IV SCH ×3 (05:47→21:50)
[2018-01-30] MEDS: THYROID 30 MG TABLET PO SCH (05:48)
[2018-01-30 08:00] VITALS: BP 124/84
[2018-01-30] MEDS: POTASSIUM CHLORIDE 20 MEQ TAB.ER.PRT PO SCH ×2 (08:08→17:20)
[2018-01-30] MEDS: BUMETANIDE 0.25 MG/ML, 4ML IV SCH ×2 (08:08→21:50)
[2018-01-30] MEDS: NEUTRA PHOS K 250 MG TABLET PO SCH ×3 (08:09→21:50)
[2018-01-30] MEDS: SERTRALINE 50MG TABLET PO SCH (08:09)
[2018-01-30] MEDS: MAGNESIUM OXIDE 400 MG TABLET PO SCH ×2 (08:09→21:50)
[2018-01-30] MEDS: IRON SUCROSE COMPLEX 100MG/5ML IV SCH (08:09)
[2018-01-30] MEDS: ASCORBIC ACID 500 MG TABLET PO SCH (08:09)
[2018-01-30] MEDS: POLYETHYLENE GLYCOL 17 GM PACKET PO SCH ×2 (08:19→21:50)
[2018-01-30] MEDS: ALBUMIN HUMAN 25% 50 ML IV SCH ×2 (09:30→17:26)
[2018-01-30] MEDS: ENOXAPARIN 80 MG/0.8 ML SQ SCH ×2 (11:43→23:44)
[2018-01-30 11:47] LABS: ALANINE AMINOTRANSFERASE 52 U/L (12-78); ALBUMIN 2.4 g/dL (3.4-5.0); ANION GAP 6 mmol/L (5-15); CALCIUM 6.8 mg/dL (8.5-10.1); CHLORIDE 102 mmol/L (98-107)
[2018-01-30 11:50] LABS: ALKALINE PHOSPHATASE 764 U/L (45-117); BILIRUBIN,TOTAL 1.2 mg/dL (0.2-1.0); TOTAL PROTEIN 6.4 g/dL (6.4-8.2)
[2018-01-30] MEDS: OxyconTIN ER 15 MG TAB.ER PO SCH ×2 (12:02→23:44)
[2018-01-30 15:50] VITALS: BP 116/80
[2018-01-30] MEDS: LIDODERM 5% PATCH TD SCH (17:20)
[2018-01-30 18:50] VITALS: BP 110/73
[2018-01-31] MEDS: HYDROmorphone 2 MG/ML, 1ML IVPush PRN ×8 (01:20→22:22)
[2018-01-31 01:35] VITALS: BP 121/81
[2018-01-31] MEDS: ALBUMIN HUMAN 25% 50 ML IV SCH (01:57)
[2018-01-31 05:40] LABS: MEAN CORPUSCULAR HEMOGLOBIN 25.8 pg (27.0-34.8); MEAN CORPUSCULAR HGB CONC 31.8 g/dL (32.4-35.8); MEAN CORPUSCULAR VOLUME 81.2 fL (80-100); MEAN PLATELET VOLUME 6.6 fL (7.4-10.4); PLATELET COUNT 319 x10^3/uL (130-400); RED BLOOD COUNT 3.03 x10^6/uL (3.82-5.3); RED CELL DISTRIBUTION WIDTH 19.9 % (9.6-15.2)
[2018-01-31 05:48] LABS: ALBUMIN 2.4 g/dL (3.4-5.0); ANION GAP 8 mmol/L (5-15); CALCIUM 6.5 mg/dL (8.5-10.1); CHLORIDE 101 mmol/L (98-107)
[2018-01-31] MEDS: THYROID 30 MG TABLET PO SCH (05:49)
[2018-01-31] MEDS: MEROPENEM 1 GM in SODIUM CHLORIDE 0.9% 100 ML IV SCH ×3 (05:49→22:25)
[2018-01-31 06:14] LABS: BASOPHILS # (AUTO) 0.03 x10^3/uL (0-0.1); BASOPHILS % (AUTO) 0 % (0-1); EOSINOPHILS # (AUTO) 0.33 x10^3/uL (0-0.4); EOSINOPHILS % (AUTO) 4 % (1-7); LYMPHOCYTES # (AUTO) 1.24 x10^3/uL (1-3.4); LYMPHOCYTES % (AUTO) 14 % (22-44); MD SCAN; MONOCYTES # (AUTO) 0.83 x10^3/uL (0.2-0.8); MONOCYTES % (AUTO) 9 % (2-9); NEUTROPHILS # (AUTO) 6.42 x10^3/uL (1.8-6.8); NEUTROPHILS % (AUTO) 73 % (42-75)
[2018-01-31 07:22] VITALS: BP 123/79
[2018-01-31] MEDS ORDERED: MAGNESIUM SULFATE PMX 2GM/50ML 50 ML IV ONE (07:30)
[2018-01-31] MEDS ORDERED: MAGNESIUM SULF. PMX 20GM/500ML 500 ML IV PRN (07:30)
[2018-01-31] MEDS: POTASSIUM CHLORIDE 20 MEQ TAB.ER.PRT PO SCH ×2 (08:50→16:58)
[2018-01-31] MEDS: NEUTRA PHOS K 250 MG TABLET PO SCH ×6 (08:51→22:01)
[2018-01-31] MEDS: ASCORBIC ACID 500 MG TABLET PO SCH (08:51)
[2018-01-31] MEDS: SERTRALINE 50MG TABLET PO SCH (08:51)
[2018-01-31] MEDS: POLYETHYLENE GLYCOL 17 GM PACKET PO SCH ×2 (08:51→22:00)
[2018-01-31] MEDS: MAGNESIUM OXIDE 400 MG TABLET PO SCH ×2 (08:51→22:00)
[2018-01-31] MEDS: IRON SUCROSE COMPLEX 100MG/5ML IV SCH (08:51)
[2018-01-31] MEDS: ENOXAPARIN 80 MG/0.8 ML SQ SCH ×2 (11:42→23:29)
[2018-01-31] MEDS: OxyconTIN ER 15 MG TAB.ER PO SCH ×2 (11:42→23:46)
[2018-01-31 13:56] VITALS: BP 126/82
[2018-01-31] MEDS: LIDODERM 5% PATCH TD SCH (17:21)
[2018-01-31 20:29] VITALS: BP 121/81
[2018-02-01 00:34] VITALS: BP 120/82
[2018-02-01] MEDS: HYDROmorphone 2 MG/ML, 1ML IVPush PRN ×6 (02:22→18:25)
[2018-02-01] MEDS: ONDANSETRON 2MG/ML, 2ML IVPush PRN (02:22)
[2018-02-01 04:59] LABS: MEAN CORPUSCULAR HEMOGLOBIN 26.3 pg (27.0-34.8); MEAN CORPUSCULAR HGB CONC 32.2 g/dL (32.4-35.8); MEAN CORPUSCULAR VOLUME 81.7 fL (80-100); MEAN PLATELET VOLUME 6.6 fL (7.4-10.4); PLATELET COUNT 378 x10^3/uL (130-400); RED BLOOD COUNT 3.28 x10^6/uL (3.82-5.3)
[2018-02-01 05:09] LABS: ANION GAP 8 mmol/L (5-15); CALCIUM 6.8 mg/dL (8.5-10.1); CHLORIDE 103 mmol/L (98-107); CREATININE 0.29 mg/dL (0.55-1.02)
[2018-02-01 05:10] LABS: ALBUMIN 2.2 g/dL (3.4-5.0)
[2018-02-01 05:44] LABS: MD YES
[2018-02-01 05:46] LABS: ANISOCYTOSIS 1+; BAND#(MANUAL) 0.31 x10^3/uL; BANDS%(MANUAL) 3 % (0-7); EOS#(MANUAL) 0.52 x10^3/uL (0.0-0.4); EOS% (MANUAL) 5 % (1-7); LYMPH#(MANUAL) 0.83 x10^3/uL (1-3.4); LYMPHS% (MANUAL) 8 % (22-44); METAMYELOCYTES% (MANUAL) 1 % (0-1); MONOS#(MANUAL) 0.73 x10^3/uL (0.3-2.7); MONOS% (MANUAL) 7 % (2-9); MYELOCYTES# (MANUAL) 0.21 x10^3/uL (0-0); MYELOCYTES% (MANUAL) 2 % (0-0); SEGS% (MANUAL) 74 % (42-75)
[2018-02-01 05:47] LABS: <PLATELET ESTIMATE> ADEQUATE; <PLT MORPHOLOGY> NORMAL PLT MORPH; MICROCYTOSIS 1+; POLYCHROMASIA 1+
[2018-02-01] MEDS ORDERED: CALCIUM CHLORIDE 13.6 MEQ in SODIUM CHLORIDE 0.9% 100 ML IV ONE (06:00)
[2018-02-01] MEDS: THYROID 30 MG TABLET PO SCH (06:13)
[2018-02-01] MEDS: MEROPENEM 1 GM in SODIUM CHLORIDE 0.9% 100 ML IV SCH ×3 (06:16→23:30)
[2018-02-01] MEDS ORDERED: FENTANYL PF 100 MCG/2ML ONE (08:23)
[2018-02-01] MEDS ORDERED: MIDAZOLAM 1 MG/ML, 5ML ONE (08:23)
[2018-02-01] MEDS ORDERED: FLUMAZENIL 0.1 MG/1 ML, 5ML ONE (08:24)
[2018-02-01] MEDS ORDERED: NALOXONE 1 MG/ML, 2ML ONE (08:24)
[2018-02-01] MEDS: POLYETHYLENE GLYCOL 17 GM PACKET PO SCH ×2 (09:00→21:00)
[2018-02-01] MEDS: NEUTRA PHOS K 250 MG TABLET PO SCH ×5 (09:00→21:00)
[2018-02-01 09:20] VITALS: BP 123/83
[2018-02-01] MEDS: MAGNESIUM OXIDE 400 MG TABLET PO SCH ×2 (09:35→21:00)
[2018-02-01] MEDS: POTASSIUM CHLORIDE 20 MEQ TAB.ER.PRT PO SCH ×2 (09:35→21:00)
[2018-02-01] MEDS: ASCORBIC ACID 500 MG TABLET PO SCH (09:35)
[2018-02-01] MEDS: IRON SUCROSE COMPLEX 100MG/5ML IV SCH (09:36)
[2018-02-01] MEDS: SERTRALINE 50MG TABLET PO SCH (09:36)
[2018-02-01] MEDS: HYDROmorphone 2 MG/ML, 1ML IV PRN ×3 (09:37→20:44)
[2018-02-01] MEDS ORDERED: VISIPAQUE 270 MG/ML, 50ML BOTTLE ONE (10:50)
[2018-02-01] MEDS: ENOXAPARIN 80 MG/0.8 ML SQ SCH ×2 (11:30→23:30)
[2018-02-01] MEDS: OxyconTIN ER 15 MG TAB.ER PO SCH (12:16)
[2018-02-01 14:38] VITALS: BP 123/83
[2018-02-01] MEDS ORDERED: PROPOFOL 10 MG/ML, 20ML ONE (16:49)
[2018-02-01] MEDS ORDERED: DEXAMETHASONE 4 MG/ML, 1ML ONE (16:49)
[2018-02-01] MEDS ORDERED: ONDANSETRON 2MG/ML, 2ML ONE (16:49)
[2018-02-01] MEDS ORDERED: PROMETHAZINE 25 MG/ML, 1ML IM PRN ×2 (17:00)
[2018-02-01] MEDS ORDERED: MORPHINE SULFATE 4 MG/ML, 1ML IVPush PRN (17:00)
[2018-02-01] MEDS ORDERED: PROMETHAZINE 25 MG SUPP PR PRN (17:00)
[2018-02-01] MEDS ORDERED: PROMETHAZINE 25 MG/ML, 1ML IV PRN (17:00)
[2018-02-01] MEDS ORDERED: LABETALOL 5MG/ML, 20ML IV PRN (17:00)
[2018-02-01] MEDS ORDERED: FENTANYL PF 100 MCG/2ML IV PRN (17:00)
[2018-02-01] MEDS ORDERED: ONDANSETRON 2MG/ML, 2ML IV PRN (17:00)
[2018-02-01] MEDS ORDERED: MEPERIDINE/PF 25MG/0.5ML IVPush PRN (17:00)
[2018-02-01] MEDS ORDERED: HALOPERIDOL 5 MG/ML IV PRN (17:00)
[2018-02-01] MEDS ORDERED: PROMETHAZINE 12.5 MG SUPP PR PRN (17:00)
[2018-02-01] MEDS ORDERED: ONDANSETRON ODT 8 MG PO PRN (17:00)
[2018-02-01] MEDS ORDERED: OXYcodone 5 MG/5 ML ORAL.SOL UDC PO PRN (17:00)
[2018-02-01] MEDS ORDERED: hydrALAzine 20 MG/ML, 1ML IV PRN (17:00)
[2018-02-01] MEDS ORDERED: HYDROmorphone 2 MG/ML, 1ML ONE (18:08)
[2018-02-01] MEDS ORDERED: OXYcodone 5 MG/5 ML ORAL.SOL UDC ONE (18:08)
[2018-02-01 19:15] VITALS: BP 123/88
[2018-02-01] MEDS: LIDODERM 5% PATCH TD SCH (20:43)
[2018-02-02 01:15] VITALS: BP 124/85
[2018-02-02] MEDS: HYDROmorphone 2 MG/ML, 1ML IV PRN ×8 (03:06→22:01)
[2018-02-02 05:26] LABS: CHLORIDE 106 mmol/L (98-107)
[2018-02-02 05:41] LABS: ALANINE AMINOTRANSFERASE 35 U/L (12-78); ALKALINE PHOSPHATASE 641 U/L (45-117); ANION GAP 8 mmol/L (5-15); BILIRUBIN,TOTAL 0.8 mg/dL (0.2-1.0); CALCIUM 7.5 mg/dL (8.5-10.1); TOTAL PROTEIN 5.9 g/dL (6.4-8.2)
[2018-02-02] MEDS: THYROID 30 MG TABLET PO SCH (06:18)
[2018-02-02] MEDS: MEROPENEM 1 GM in SODIUM CHLORIDE 0.9% 100 ML IV SCH ×3 (06:18→22:59)
[2018-02-02 07:54] VITALS: BP 134/86
[2018-02-02] MEDS: IRON SUCROSE COMPLEX 100MG/5ML IV SCH (09:00)
[2018-02-02] MEDS: POLYETHYLENE GLYCOL 17 GM PACKET PO SCH ×2 (09:00→20:59)
[2018-02-02] MEDS: POTASSIUM CHLORIDE 20 MEQ TAB.ER.PRT PO SCH ×2 (09:41→17:41)
[2018-02-02] MEDS: NEUTRA PHOS K 250 MG TABLET PO SCH ×3 (09:41→20:59)
[2018-02-02] MEDS: MAGNESIUM OXIDE 400 MG TABLET PO SCH ×2 (09:42→20:59)
[2018-02-02] MEDS: SERTRALINE 50MG TABLET PO SCH (09:42)
[2018-02-02] MEDS: ASCORBIC ACID 500 MG TABLET PO SCH (09:42)
[2018-02-02] MEDS: ENOXAPARIN 80 MG/0.8 ML SQ SCH ×2 (11:54→23:00)
[2018-02-02] MEDS: OxyconTIN ER 15 MG TAB.ER PO SCH ×2 (11:54)
[2018-02-02 12:23] VITALS: BP 132/86
[2018-02-02 14:30] VITALS: BP 128/86
[2018-02-02] MEDS: LIDODERM 5% PATCH TD SCH (17:40)
[2018-02-02 21:17] VITALS: BP 136/83
[2018-02-03] MEDS: OxyconTIN ER 15 MG TAB.ER PO SCH ×2 (00:13→11:49)
[2018-02-03 01:02] VITALS: BP 138/89
[2018-02-03] MEDS: HYDROmorphone 2 MG/ML, 1ML IV PRN ×8 (01:06→22:12)
[2018-02-03] MEDS: THYROID 30 MG TABLET PO SCH (06:05)
[2018-02-03 07:51] VITALS: BP 142/97
[2018-02-03] MEDS: MEROPENEM 1 GM in SODIUM CHLORIDE 0.9% 100 ML IV SCH (07:58)
[2018-02-03] MEDS: NEUTRA PHOS K 250 MG TABLET PO SCH ×3 (07:59→20:11)
[2018-02-03] MEDS: ASCORBIC ACID 500 MG TABLET PO SCH (07:59)
[2018-02-03] MEDS: SERTRALINE 50MG TABLET PO SCH (07:59)
[2018-02-03] MEDS: MAGNESIUM OXIDE 400 MG TABLET PO SCH ×2 (07:59→20:11)
[2018-02-03] MEDS: POLYETHYLENE GLYCOL 17 GM PACKET PO SCH ×2 (07:59→20:10)
[2018-02-03] MEDS: POTASSIUM CHLORIDE 20 MEQ TAB.ER.PRT PO SCH (07:59)
[2018-02-03] MEDS: LEVOFLOXACIN 750 MG TABLET PO SCH (10:00)
[2018-02-03] MEDS: ENOXAPARIN 80 MG/0.8 ML SQ SCH ×2 (11:53→22:12)
[2018-02-03 12:02] VITALS: BP 138/93
[2018-02-03 19:54] VITALS: BP 135/91
[2018-02-03] MEDS: LIDODERM 5% PATCH TD SCH (20:11)
[2018-02-04] MEDS: OxyconTIN ER 15 MG TAB.ER PO SCH (00:09)
[2018-02-04] MEDS: HYDROmorphone 2 MG/ML, 1ML IV PRN ×5 (01:03→21:51)
[2018-02-04 02:30] VITALS: BP 118/69
[2018-02-04] MEDS: THYROID 30 MG TABLET PO SCH (05:43)
[2018-02-04 08:24] VITALS: BP 138/90
[2018-02-04] MEDS: POLYETHYLENE GLYCOL 17 GM PACKET PO SCH ×2 (09:00→20:42)
[2018-02-04] MEDS: NEUTRA PHOS K 250 MG TABLET PO SCH ×3 (09:21→20:37)
[2018-02-04] MEDS: LEVOFLOXACIN 750 MG TABLET PO SCH (09:21)
[2018-02-04] MEDS: ASCORBIC ACID 500 MG TABLET PO SCH (09:22)
[2018-02-04] MEDS: SERTRALINE 50MG TABLET PO SCH (09:22)
[2018-02-04] MEDS: MAGNESIUM OXIDE 400 MG TABLET PO SCH ×2 (09:22→20:37)
[2018-02-04] MEDS ORDERED: HYDROmorphone 2 MG/ML, 1ML IV PRN (10:00)
[2018-02-04] MEDS ORDERED: OXYcodone/APAP 10/325MG TABLET PO PRN (10:00)
[2018-02-04] MEDS ORDERED: OXYC15TA60 PO (11:19)
[2018-02-04] MEDS ORDERED: ONDA8TAB16 PO (11:19)
[2018-02-04] MEDS ORDERED: PHOS250T3 PO (11:19)
[2018-02-04] MEDS ORDERED: LIDO700A20 TD (11:19)
[2018-02-04] MEDS ORDERED: OXYC-432 PO (11:19)
[2018-02-04] MEDS ORDERED: LEVO750T26 PO (11:19)
[2018-02-04] MEDS ORDERED: MAGN400T50 PO (11:19)
[2018-02-04] MEDS ORDERED: POLY17PO5 PO (11:19)
[2018-02-04] MEDS ORDERED: ENOX80SY4 SQ (11:19)
[2018-02-04 13:18] VITALS: BP 132/84
[2018-02-04] MEDS: ENOXAPARIN 80 MG/0.8 ML SQ SCH (13:20)
[2018-02-04] MEDS ORDERED: OxyconTIN ER 15 MG TAB.ER PO SCH ×3 (15:30→20:30)
[2018-02-04] MEDS: FENTANYL REMOVE PATCH NOTE XX SCH (16:00)
[2018-02-04] MEDS ORDERED: HYDROmorphone 2 MG/ML, 1ML IVPush ONE (16:00)
[2018-02-04] MEDS: FENTANYL 100 MCG PATCH TD SCH (17:16)
[2018-02-04] MEDS ORDERED: OMNIPAQUE 350 MG/ML, 100ML BOTTLE ONE (18:00)
[2018-02-04 19:51] VITALS: BP 131/86
[2018-02-04] MEDS: LIDODERM 5% PATCH TD SCH (20:37)
[2018-02-05] MEDS: ENOXAPARIN 80 MG/0.8 ML SQ SCH ×2 (00:54→12:35)
[2018-02-05] MEDS: HYDROmorphone 2 MG/ML, 1ML IV PRN ×7 (00:54→23:41)
[2018-02-05 00:59] VITALS: BP 120/83
[2018-02-05] MEDS: THYROID 30 MG TABLET PO SCH (06:49)
[2018-02-05 08:06] VITALS: BP 121/86
[2018-02-05] MEDS: NEUTRA PHOS K 250 MG TABLET PO SCH ×3 (09:35→20:29)
[2018-02-05] MEDS: SERTRALINE 50MG TABLET PO SCH (09:35)
[2018-02-05] MEDS: LEVOFLOXACIN 750 MG TABLET PO SCH (09:36)
[2018-02-05] MEDS: ASCORBIC ACID 500 MG TABLET PO SCH (09:36)
[2018-02-05] MEDS: MAGNESIUM OXIDE 400 MG TABLET PO SCH ×2 (09:36→20:29)
[2018-02-05] MEDS: POLYETHYLENE GLYCOL 17 GM PACKET PO SCH ×2 (09:37→21:00)
[2018-02-05] MEDS ORDERED: LOPERAMIDE 2 MG CAPSULE PO PRN ×2 (10:30)
[2018-02-05] MEDS ORDERED: LORazepam 2 MG/ML, 1ML IVPush ONE (10:30)
[2018-02-05] MEDS ORDERED: GADOBUTROL 10 MMOL/10 ML PFS ONE (12:08)
[2018-02-05 12:56] VITALS: BP 123/80
[2018-02-05 19:36] VITALS: BP 108/76
[2018-02-05] MEDS: LIDODERM 5% PATCH TD SCH (20:00)
[2018-02-06] MEDS: ENOXAPARIN 80 MG/0.8 ML SQ SCH ×3 (00:17→22:50)
[2018-02-06 01:34] VITALS: BP 124/86
[2018-02-06] MEDS: HYDROmorphone 2 MG/ML, 1ML IV PRN ×7 (02:52→22:53)
[2018-02-06 05:28] LABS: ALBUMIN 1.8 g/dL (3.4-5.0); ANION GAP 6 mmol/L (5-15); CHLORIDE 100 mmol/L (98-107)
[2018-02-06 05:32] LABS: MEAN CORPUSCULAR HGB CONC 32.2 g/dL (32.4-35.8); MEAN CORPUSCULAR VOLUME 83.9 fL (80-100); MEAN PLATELET VOLUME 6.6 fL (7.4-10.4); PLATELET COUNT 274 x10^3/uL (130-400); RED BLOOD COUNT 3.12 x10^6/uL (3.82-5.3); RED CELL DISTRIBUTION WIDTH 23.3 % (9.6-15.2)
[2018-02-06 05:33] LABS: ALANINE AMINOTRANSFERASE 41 U/L (12-78); ALKALINE PHOSPHATASE 760 U/L (45-117); BILIRUBIN,TOTAL 0.7 mg/dL (0.2-1.0); CREATININE 0.36 mg/dL (0.55-1.02); TOTAL PROTEIN 5.8 g/dL (6.4-8.2)
[2018-02-06 06:03] LABS: MD YES
[2018-02-06 06:06] LABS: BAND#(MANUAL) 0.44 x10^3/uL; BANDS%(MANUAL) 4 % (0-7); EOS#(MANUAL) 0.44 x10^3/uL (0.0-0.4); EOS% (MANUAL) 4 % (1-7); LYMPH#(MANUAL) 0.88 x10^3/uL (1-3.4); LYMPHS% (MANUAL) 8 % (22-44); MONOS#(MANUAL) 0.22 x10^3/uL (0.3-2.7); MONOS% (MANUAL) 2 % (2-9); MYELOCYTES# (MANUAL) 0.11 x10^3/uL (0-0); MYELOCYTES% (MANUAL) 1 % (0-0); SEG#(MANUAL) 8.91 x10^3/uL (1.8-6.8); SEGS% (MANUAL) 81 % (42-75)
[2018-02-06 06:07] LABS: ANISOCYTOSIS 1+; MICROCYTOSIS 1+; POLYCHROMASIA 1+
[2018-02-06 06:08] LABS: <PLATELET ESTIMATE> ADEQUATE; <PLT MORPHOLOGY> NORMAL PLT MORPH
[2018-02-06] MEDS: THYROID 30 MG TABLET PO SCH (06:14)
[2018-02-06 07:54] VITALS: BP 113/74
[2018-02-06] MEDS: POLYETHYLENE GLYCOL 17 GM PACKET PO SCH ×2 (09:00→19:58)
[2018-02-06] MEDS: NEUTRA PHOS K 250 MG TABLET PO SCH ×3 (10:05→21:51)
[2018-02-06] MEDS: MAGNESIUM OXIDE 400 MG TABLET PO SCH ×2 (10:06→19:51)
[2018-02-06] MEDS: LEVOFLOXACIN 750 MG TABLET PO SCH (10:06)
[2018-02-06] MEDS: ASCORBIC ACID 500 MG TABLET PO SCH (10:06)
[2018-02-06] MEDS: SERTRALINE 50MG TABLET PO SCH (10:06)
[2018-02-06] MEDS: ONDANSETRON 2MG/ML, 2ML IVPush PRN (10:20)
[2018-02-06 14:44] VITALS: BP 120/86
[2018-02-06] MEDS: LIDODERM 5% PATCH TD SCH (19:57)
[2018-02-06 20:16] VITALS: BP 126/84
[2018-02-07 00:54] VITALS: BP 124/84
[2018-02-07] MEDS: HYDROmorphone 2 MG/ML, 1ML IV PRN ×7 (02:59→22:39)
[2018-02-07] MEDS: THYROID 30 MG TABLET PO SCH (06:07)
[2018-02-07 07:24] VITALS: BP 122/80
[2018-02-07] MEDS: ASCORBIC ACID 500 MG TABLET PO SCH (08:25)
[2018-02-07] MEDS: NEUTRA PHOS K 250 MG TABLET PO SCH ×3 (08:26→22:02)
[2018-02-07] MEDS: LEVOFLOXACIN 750 MG TABLET PO SCH (08:27)
[2018-02-07] MEDS: POLYETHYLENE GLYCOL 17 GM PACKET PO SCH ×2 (08:27→22:02)
[2018-02-07] MEDS: SERTRALINE 50MG TABLET PO SCH (08:27)
[2018-02-07] MEDS: MAGNESIUM OXIDE 400 MG TABLET PO SCH ×2 (08:27→22:02)
[2018-02-07] MEDS: ENOXAPARIN 80 MG/0.8 ML SQ SCH ×2 (12:13→22:01)
[2018-02-07 13:32] VITALS: BP 132/88
[2018-02-07] MEDS: FENTANYL 100 MCG PATCH TD SCH (15:06)
[2018-02-07] MEDS: FENTANYL REMOVE PATCH NOTE XX SCH (16:00)
[2018-02-07] MEDS ORDERED: FENTANYL 25 MCG PATCH TD SCH (16:00)
[2018-02-07 19:32] VITALS: BP 135/91
[2018-02-07] MEDS: LIDODERM 5% PATCH TD SCH (22:02)
[2018-02-08 03:53] VITALS: BP 139/99
[2018-02-08] MEDS: HYDROmorphone 2 MG/ML, 1ML IV PRN ×2 (06:23→09:35)
[2018-02-08] MEDS: THYROID 30 MG TABLET PO SCH (06:23)
[2018-02-08 07:42] VITALS: BP 122/86
[2018-02-08] MEDS: POLYETHYLENE GLYCOL 17 GM PACKET PO SCH ×2 (09:00→21:00)
[2018-02-08] MEDS: ASCORBIC ACID 500 MG TABLET PO SCH (09:23)
[2018-02-08] MEDS: MAGNESIUM OXIDE 400 MG TABLET PO SCH ×2 (09:24→21:22)
[2018-02-08] MEDS: NEUTRA PHOS K 250 MG TABLET PO SCH ×3 (09:24→21:21)
[2018-02-08] MEDS: LEVOFLOXACIN 750 MG TABLET PO SCH (09:24)
[2018-02-08] MEDS: SERTRALINE 50MG TABLET PO SCH (09:24)
[2018-02-08] MEDS: ENOXAPARIN 80 MG/0.8 ML SQ SCH ×2 (09:25→21:21)
[2018-02-08] MEDS ORDERED: HYDROmorphone 2MG TABLET PO PRN (10:30)
[2018-02-08] MEDS: HYDROmorphone 2MG TABLET PO PRN ×3 (12:48→21:23)
[2018-02-08 13:54] VITALS: BP 115/82
[2018-02-08 19:58] VITALS: BP 116/84
[2018-02-08] MEDS: LIDODERM 5% PATCH TD SCH (21:22)
[2018-02-09 01:06] VITALS: BP 118/86
[2018-02-09] MEDS: HYDROmorphone 2MG TABLET PO PRN ×4 (01:32→19:00)
[2018-02-09] MEDS: THYROID 30 MG TABLET PO SCH (05:57)
[2018-02-09 07:30] VITALS: BP 118/82
[2018-02-09] MEDS: POLYETHYLENE GLYCOL 17 GM PACKET PO SCH ×2 (08:38→20:15)
[2018-02-09] MEDS ORDERED: HYDROmorphone 2 MG/ML, 1ML ONE ×3 (08:43→16:14)
[2018-02-09] MEDS: LEVOFLOXACIN 750 MG TABLET PO SCH (08:54)
[2018-02-09] MEDS: ASCORBIC ACID 500 MG TABLET PO SCH (08:54)
[2018-02-09] MEDS: NEUTRA PHOS K 250 MG TABLET PO SCH ×3 (08:54→20:33)
[2018-02-09] MEDS: SERTRALINE 50MG TABLET PO SCH (08:55)
[2018-02-09] MEDS: MAGNESIUM OXIDE 400 MG TABLET PO SCH ×2 (08:55→20:33)
[2018-02-09] MEDS: ENOXAPARIN 80 MG/0.8 ML SQ SCH ×2 (08:55→20:33)
[2018-02-09] MEDS ORDERED: HYDROmorphone 1 MG/ML, 1ML IV ONE (09:00)
[2018-02-09] MEDS ORDERED: HYDROmorphone 1 MG/ML, 1ML IV PRN ×2 (13:00→13:30)
[2018-02-09 14:23] VITALS: BP 118/81
[2018-02-09 19:29] VITALS: BP 125/82
[2018-02-09] MEDS: LIDODERM 5% PATCH TD SCH (20:33)
[2018-02-09] MEDS: HYDROmorphone 2 MG/ML, 1ML IV PRN (20:33)
[2018-02-10] MEDS: HYDROmorphone 2 MG/ML, 1ML IV PRN ×7 (00:29→21:51)
[2018-02-10 00:30] VITALS: BP 112/80
[2018-02-10] MEDS: HYDROmorphone 2MG TABLET PO PRN ×2 (02:13→06:28)
[2018-02-10] MEDS: THYROID 30 MG TABLET PO SCH (06:28)
[2018-02-10 07:25] VITALS: BP 114/77
[2018-02-10] MEDS: POLYETHYLENE GLYCOL 17 GM PACKET PO SCH ×2 (09:00→20:52)
[2018-02-10] MEDS: LEVOFLOXACIN 750 MG TABLET PO SCH (09:18)
[2018-02-10] MEDS: NEUTRA PHOS K 250 MG TABLET PO SCH ×3 (09:18→20:52)
[2018-02-10] MEDS: ASCORBIC ACID 500 MG TABLET PO SCH (09:18)
[2018-02-10] MEDS: SERTRALINE 50MG TABLET PO SCH (09:18)
[2018-02-10] MEDS: MAGNESIUM OXIDE 400 MG TABLET PO SCH ×2 (09:18→20:52)
[2018-02-10] MEDS: ENOXAPARIN 80 MG/0.8 ML SQ SCH ×2 (09:20→20:53)
[2018-02-10 14:01] VITALS: BP 125/85
[2018-02-10] MEDS ORDERED: HYDROmorphone 2MG TABLET PO PRN (14:30)
[2018-02-10] MEDS ORDERED: FENTANYL REMOVE PATCH NOTE XX SCH (16:00)
[2018-02-10] MEDS ORDERED: FENTANYL 25 MCG PATCH TD SCH (16:00)
[2018-02-10] MEDS ORDERED: FENTANYL 100 MCG PATCH TD SCH (16:00)
[2018-02-10] MEDS: DEXAMETHASONE 4 MG/ML, 1ML IVPush SCH ×2 (16:14→20:51)
[2018-02-10] MEDS: LIDODERM 5% PATCH TD SCH (20:47)
[2018-02-10] MEDS: GABAPENTIN 100 MG CAPSULE PO SCH (20:52)
[2018-02-10 21:09] VITALS: BP 127/87
[2018-02-11] MEDS: HYDROmorphone 2 MG/ML, 1ML IV PRN ×6 (01:03→17:12)
[2018-02-11 01:45] VITALS: BP 125/89
[2018-02-11] MEDS: THYROID 30 MG TABLET PO SCH (06:29)
[2018-02-11 08:00] VITALS: BP 126/81
[2018-02-11] MEDS: POLYETHYLENE GLYCOL 17 GM PACKET PO SCH (09:28)
[2018-02-11] MEDS: GABAPENTIN 100 MG CAPSULE PO SCH (09:28)
[2018-02-11] MEDS: MAGNESIUM OXIDE 400 MG TABLET PO SCH (09:28)
[2018-02-11] MEDS: DEXAMETHASONE 4 MG/ML, 1ML IVPush SCH ×2 (09:28→16:03)
[2018-02-11] MEDS: ASCORBIC ACID 500 MG TABLET PO SCH (09:29)
[2018-02-11] MEDS: NEUTRA PHOS K 250 MG TABLET PO SCH ×2 (09:29→16:03)
[2018-02-11] MEDS: LEVOFLOXACIN 750 MG TABLET PO SCH (09:29)
[2018-02-11] MEDS: SERTRALINE 50MG TABLET PO SCH (09:38)
[2018-02-11] MEDS: ENOXAPARIN 80 MG/0.8 ML SQ SCH (09:38)
[2018-02-11 13:13] VITALS: BP 117/80
== END 2018-02-11 19:43 | disposition hospice, home (50) | DRG 871 ==
LOC: ED 18:25 → EDIP 18:26 → 4WST 20:16 → 3NW 02-02 14:33
PROVIDERS: ADMIT Internal Medicine; ATTEND Internal Medicine
PROC: 0T9B70Z Drainage of Bladder with Drainage Device, Via Natural or Artificial Opening (ICD-10-PCS; principal; 2018-01-24)
PROC: 0T25X0Z Change Drainage Device in Kidney, External Approach (ICD-10-PCS; 2018-01-24)
PROC: 0F798DZ Dilation of Common Bile Duct with Intraluminal Device, Via Natural or Artificial Opening Endoscopic (ICD-10-PCS; 2018-01-28)
PROC: BF101ZZ Fluoroscopy of Bile Ducts using Low Osmolar Contrast (ICD-10-PCS; 2018-01-28)
DX: A41.59 Other Gram-negative sepsis (principal); E43 Unspecified severe protein-calorie malnutrition; D61.810 Antineoplastic chemotherapy induced pancytopenia; C79.51 Secondary malignant neoplasm of bone; B17.9 Acute viral hepatitis, unspecified; C18.1 Malignant neoplasm of appendix; C78.00 Secondary malignant neoplasm of unspecified lung; C78.7 Secondary malignant neoplasm of liver and intrahepatic bile duct; I82.413 Acute embolism and thrombosis of femoral vein, bilateral; N39.0 Urinary tract infection, site not specified; K80.31 Calculus of bile duct with cholangitis, unspecified, with obstruction; T85.898A Other specified complication of other internal prosthetic devices, implants and grafts, initial encounter; R65.20 Severe sepsis without septic shock; G89.3 Neoplasm related pain (acute) (chronic); E87.6 Hypokalemia; E83.42 Hypomagnesemia; B96.5 Pseudomonas (aeruginosa) (mallei) (pseudomallei) as the cause of diseases classified elsewhere; B96.1 Klebsiella pneumoniae [K. pneumoniae] as the cause of diseases classified elsewhere; D50.9 Iron deficiency anemia, unspecified; E03.9 Hypothyroidism, unspecified; I10 Essential (primary) hypertension; Z51.5 Encounter for palliative care; Z66 Do not resuscitate; Y83.8 Other surgical procedures as the cause of abnormal reaction of the patient, or of later complication, without mention of misadventure at the time of the procedure; F41.9 Anxiety disorder, unspecified; F12.90 Cannabis use, unspecified, uncomplicated; E83.39 Other disorders of phosphorus metabolism; T45.1X5A Adverse effect of antineoplastic and immunosuppressive drugs, initial encounter; Y92.89 Other specified places as the place of occurrence of the external cause; Z82.49 Family history of ischemic heart disease and other diseases of the circulatory system; Z83.3 Family history of diabetes mellitus; Z85.038 Personal history of other malignant neoplasm of large intestine; Z90.49 Acquired absence of other specified parts of digestive tract; Z90.710 Acquired absence of both cervix and uterus; Z92.3 Personal history of irradiation; Z68.24 Body mass index [BMI] 24.0-24.9, adult; Z93.6 Other artificial openings of urinary tract status; Z79.899 Other long term (current) drug therapy
CPT/HCPCS: 36415; 50435; 73552; 74328; 74420; 84145; 87400; 99291; J3490; 70460; 70543; 71045; 71260; 74177; 77280; 77290; 77295; 77300; 77334; 77412; 77417; 77470; 80048; 80053; 80074; 80202; 81001; 82040; 82330; 82728; 83540; 83550; 83605; 83690; 83735; 84100; 84443; 85025; 85520; 87040; 87077; 87086; 87186; 93005; 93306; 93970; 96361; 96365; 96375; 99156; 99157; A9585; G0378; J0610; J0690; J0696; J1100; J1170; J1644; J1650; J1756; J2185; J2250; J2405; J2550; J2704; J2710; J3010; J3370; J3480; P9047; Q0162; Q9966; Q9967; C1729; C1769; C1876; C2617; C2625; J0330; J2060; J2310; J2370; J3475; J7030; J7040; J7050